=== PATIENT | male | born 1945 | race Caucasian/White ===

== ENCOUNTER 2017-02-25 10:53 | Observation (INO) ==
[2017-02-25] MEDS ORDERED: 0.9 % Sodium Chloride 500 ML IVC ONE (11:28)
--- NOTE | 2017-02-25 11:40 | Emergency Department Note ---
Disposition Clinical Impression: Pre-syncope Disposition: Admitted As Inpatient Condition: Good Time of Disposition: 12:48 General Adult HPI - General Chief complaint: ED Dizziness Stated complaint: dizzy, feel like gonna pass out Time Seen by Provider: 02/25/17 11:09 Source: patient, family Limitations: no limitations Nursing Notes Reviewed: Yes Vital Signs Reviewed: Yes - History of Present Illness HPI Narrative: 71-year-old male presenting to the emergency department with chief complaint of increased shortness of breath and presyncope for the past 2 weeks. Patient has a significant past medical history of an aortic valve replacement approximately 10 years ago. Patient denies any any history of open heart surgeries. Patient denies any loss of consciousness or hitting his head. He states he is concerned that his valve is going bad because he was told that only lasts a maximum of 15 years. Patient denies chest pain at this time. He states his symptoms have been increasing over the past 2 days. Patient had a cardiac catheterization completed in 2008 which was within normal limits. He does not follow up with cardiology at this time. Pain Scale: 0 - Related Data Home Medications Medication Instructions Recorded Confirmed Allopurinol [Zyloprim 100 MG] 100 mg PO DAILY 02/25/17 02/25/17 Aspirin [Lo-Dose Aspirin EC] 81 mg PO DAILY 02/25/17 02/25/17 Lisinopril [Zestril] 20 mg PO DAILY 02/25/17 02/25/17 Metoprolol [Lopressor] 50 mg PO BID 02/25/17 02/25/17 Simvastatin [Zocor] 40 mg PO QPM 02/25/17 02/25/17 Allergies Allergy/AdvReac Type Severity Reaction Status Date / Time Penicillins AdvReac Nausea Verified 02/25/17 11:00 All systems ED: reviewed and negative except as stated. Constitutional: Reports: weakness. Denies: fever, chills Eyes: Reports: as per HPI ENT ED: Reports: as per HPI Cardiovascular: Reports: dyspnea on exertion. Denies: chest pain, palpitations Respiratory: Reports: dyspnea. Denies: cough, wheezes, hemoptysis Gastrointestinal: Reports: nausea. Denies: abdominal pain, vomiting, diarrhea Genitourinary: Reports: as per HPI Musculoskeletal: Reports: as per HPI Integumentary: Denies: rash, abrasion, lesions Neurological: Reports: weakness. Denies: headache, numbness, paresthesias Psychiatric: Reports: as per HPI Endocrine: Reports: as per HPI Hematological/Lymphatic: Reports: as per HPI Allergic/Immunologic: Reports: as per HPI Past Medical History - Past Medical History Attestation: Yes The following information was validated with the patient. Medical history: Reports: cirrhosis, hyperlipidemia, hypertension, myocardial infarction Psychiatric history: Reports: no psych history - Social History Smoking Status: Former smoker Smokeless Tobacco Status: No Alcohol use: Reports: none Drug use: Reports: none Physical Exam - General Limitations: no limitations General appearance: alert, in no apparent distress - Head Head exam: atraumatic, normocephalic, normal inspection - Eye Eye exam: Present: normal appearance - Chest Chest inspection: Present: normal inspection, symmetric chest wall rise. Absent : tenderness, rash - Respiratory Respiratory exam: Present: normal lung sounds bilaterally. Absent: respiratory distress, wheezes - Cardiovascular Cardiovascular exam: Present: bradycardia, systolic murmur - Abdominal Exam Abdominal exam: Present: soft, Non-Tender. Absent: distention, guarding, rebound - Extremities Exam Extremities exam: Present: normal inspection, full ROM - Neurological Exam Neurological exam: Present: alert, oriented X3 - Psychiatric Psychiatric exam: Present: normal affect, normal mood - Skin Skin exam: Present: warm, intact Course Course Narrative: 71-year-old male presented to the emergency department with chief complaint of feeling faint while standing up. Patient has not followed up with cardiology since 2019. He has concerns for his aortic valve replacement. We will perform a chest pain workup including orthostatic vital sign. Will provide 500 mL of fluid. Patient does have congestion noted on x-ray and therefore no additional fluid can be given. Disposition most likely admission for echo - Reevaluation(s) Reevaluation #1: All lab work has come back within normal limits. Chest x-ray shows minimal congestion. We will plan to admit the patient at this time due to her strong cardiac history. Called the hospitalist returned and Ruslan Win accepts the patient. Time: 12:48 Vital Signs Temperature 97.4 F L 02/25/17 11:04 Pulse Rate 50 02/25/17 11:04 Respiratory Rate 18 02/25/17 11:04 Blood Pressure 189/74 02/25/17 11:04 O2 Sat by Pulse Oximetry 100 02/25/17 11:04 Temperature 97.4 F L 02/25/17 11:04 Pulse Rate 49 02/25/17 12:36 Respiratory Rate 18 02/25/17 12:36 Blood Pressure 177/72 02/25/17 12:36 O2 Sat by Pulse Oximetry 99 02/25/17 12:36 Oxygen Delivery Oxygen Delivery Room Air Medical Decision Making - Lab Data Result diagrams: 02/25/17 11:48 02/25/17 11:48 Lab Results 02/25/17 02/25/17 02/25/17 Range/Units 11:48 11:48 11:48 WBC 9.9 (4.3-11.1) K/mcL RBC 5.80 H (4.19-5.50) M/mcL Hgb 17.4 H (12.9-16.9) g/dL Hct 52.1 H (37.5-50.1) % MCV 89.8 (83.0-100.0) fL MCH 30.0 (28.0-33.3) pg MCHC 33.4 (31.6-35.5) g/dL RDW 13.4 (11.5-14.5) % Plt Count 146 (140-400) K/mcL MPV 11.4 (9.4-12.4) fL Immature Gran % 0.4 (0-4) % Seg Neutrophils % 58.6 % Lymphocytes % 27.5 % Monocytes % 8.0 % Eosinophils % 4.8 % Basophils % 0.7 % Neutrophils # 5.8 (1.6-8.9) K/mcL Lymphocytes # 2.7 (0.6-4.6) K/mcL Monocytes # 0.8 (0.0-1.3) K/mcL Eosinophils # 0.5 (0.0-0.6) K/mcL Basophils # 0.1 (0.0-0.2) K/mcL Sodium 140 (136-145) mEq/L Potassium 4.1 (3.5-4.5) mEq/L Chloride 104 (98-109) mEq/L Carbon Dioxide 27 (19-29) mEq/L BUN 11 (8-26) mg/dL Creatinine 1.24 (0.72-1.25) mg/dL Est GFR ( Amer) > 60 (> 60) Est GFR (Non-Af Amer) 57 L (> 60) BUN/Creatinine Ratio 9 (6-26) Glucose 84 (70-99) mg/dL Calculated Osmolality 289 (280-300) Calcium 9.7 (8.6-10.8) mg/dL Troponin I 0.01 (0-0.03) ng/mL Attestation Statement - Attestation Attestation: I examined this patient and my medical decision-making was reviewed with the Resident Physician. I agree with the documented findings, disposition and treatment plan as described except to the extent set forth below. Patient emergency department complaining of near syncope. Patient states when he stands up he felt lightheaded like he is going to pass out. Onset 2 days ago. Denies any vomiting. Has not been doing any extra work around the house. Nothing to account for being dehydrated. Exam shows some in no acute distress. He does have murmur. Lungs clear. Plan. Patient's cardiac workup is unremarkable. He does have a valve replacement that he states was told would eventually need replaced. He has not seen a torch brazer in years. Will be admitted for further cardiac evaluation.
[2017-02-25 12:02] LABS: Basophils # 0.1 K/mcL (0.0-0.2); Basophils % 0.7 %; Eosinophils # 0.5 K/mcL (0.0-0.6); Eosinophils % 4.8 %; Hematocrit 52.1 % (37.5-50.1); Hemoglobin 17.4 g/dL (12.9-16.9); Immature Granulocytes % 0.4 % (0-4); Lymphocytes # 2.7 K/mcL (0.6-4.6); Lymphocytes % 27.5 %; Mean Corpuscular HGB Conc 33.4 g/dL (31.6-35.5); Mean Corpuscular Volume 89.8 fL (83.0-100.0); Mean Platelet Volume 11.4 fL (9.4-12.4); Monocytes # 0.8 K/mcL (0.0-1.3); Neutrophils # 5.8 K/mcL (1.6-8.9); Platelet Count 146 K/mcL (140-400); Red Cell Distribution Width 13.4 % (11.5-14.5); Segmented Neutrophils % 58.6 %
[2017-02-25 12:12] LABS: BUN/Creatinine Ratio 9 (6-26); Blood Urea Nitrogen 11 mg/dL (8-26); Calcium 9.7 mg/dL (8.6-10.8); Carbon Dioxide 27 mEq/L (19-29); Chloride 104 mEq/L (98-109); Glucose 84 mg/dL (70-99); Osmolality,Calculated 289 (280-300); Potassium 4.1 mEq/L (3.5-4.5); Sodium 140 mEq/L (136-145); eGFR For African Americans > 60 (> 60); eGFR For Non-African Americans 57 (> 60)
[2017-02-25] MEDS ORDERED: Ondansetron 4 MG/2 ML VIAL IVP PRN (14:30)
[2017-02-25] MEDS ORDERED: Acetaminophen 325 MG TABLET PO PRN (14:30)
[2017-02-25] MEDS ORDERED: Naloxone 0.4 MG/ML INJ IVP PRN (14:30)
--- NOTE | 2017-02-25 14:57 | Internal Med History&Physical ---
<Manisha Mitchell - Last Filed: 02/25/17 17:40> Date of Encounter: 02/25/17 Time of Encounter: 14:45 Assessment and Plan (1) Pre-syncope Current visit: Yes Status: Acute 1 patient has been experiencing for the past days nausea and lightheadedness to the point he feels that he is going to pass out while standing and walking. Symptoms are relieved with rest. Patient concerned symptoms similar to his previous MT. First troponin is 0.01. We will continue to trend troponins 2 continuous cardiac monitoring 3 we will check cardiac echo-history of aortic valve replacement 10 years ago- he did have some vascular congestion on his chest x-ray 4 fall precautions 6 in view after midnight cardiac stress in a.m.-nausea and lightheadedness anginal equivalent-patient states he experienced these symptoms on his last MT. He never experienced chest pain 7 patient is on a beta you which could be contributing to symptoms-is presently bradycardic with rate 49-54. METOPROLOL for now if bradycardia continues we will consult cardiology 8 orthostatic vitals were positive in the ER.-We will give some gentle IV hydration and recheck orthostatics (2) History of aortic valve replacement Current visit: Yes Status: Acute 1. Replacement approximately 10 years ago. We will check cardiac echo (3) Hypertension Current visit: No Status: Chronic 1 we will continue with lisinopril 2 hold metoprolol for now due to bradycardia Qualifiers: Hypertension type: essential hypertension Qualified Code(s): I10 - Essential (primary) hypertension (4) CAD (coronary artery disease) Current visit: No Status: Chronic We will continue with aspirin and statin lisinopril hold metoprolol for now 2 nitroglycerin as needed for chest pain 3 cardiac monitoring Qualifiers: Coronary Disease-Associated Artery/Lesion type: [place] artery [place] vs. transplanted heart: [place] heart Associated angina: without angina Qualified Code(s): I25.10 - Atherosclerotic heart disease of [place] coronary artery without angina pectoris (5) DVT prophylaxis Current visit: Yes Status: Acute Lovenox subcutaneous Internal Medicine - H&P: HPI Chief complaint: near syncope Admitted From: Emergency Dept Plans for Post Hospital Care: Home History of present illness: Mr. Alexis is a 71 year old male Past medical history of hypertension hyperlipidemia psoriasis MT and aortic valve replacement in 2006. According to the patient was in his usual state of health up until 2 days ago and began to experience nausea/feel lightheaded to the point that he felt as if he was going to pass out. This occurred while he was standing for a period of time. Symptoms would improve once he would sit down and rest. He denies any fevers chills diarrhea abdominal pain chest pain or palpitations. He does admit to some shortness of breath on exertion. Which again would improve with rest. He denies any unusual weight loss or weight gain wheezing or coughing or swelling to abdomen or lower extremities. He had similar symptoms previously when he had his MT 10 years ago, also concerned that his valve may be failing. His last cardiac catheter was in 2008 which he states was normal. 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 He has been admitted for further workup and evaluation. Past Med Surg Social Fam HX - Past Medical History Medical history: cirrhosis, hyperlipidemia, hypertension, myocardial infarction Psychiatric history: no psych history - Social History Smoking Status: Former smoker Smokeless Tobacco Status: No Alcohol use: none Drug use: none - Family History Mother History Unknown: Yes Internal Medicine - H&P: Meds Allopurinol [Zyloprim 100 MG] 100 mg PO DAILY 02/25/17 [History] Aspirin [Lo-Dose Aspirin EC] 81 mg PO DAILY 02/25/17 [History] Lisinopril [Zestril] 20 mg PO DAILY 02/25/17 [History] Metoprolol [Lopressor] 50 mg PO BID 02/25/17 [History] Simvastatin [Zocor] 40 mg PO QPM 02/25/17 [History] 3 Allergy/AdvReac Type Severity Reaction Status Date / Time Penicillins AdvReac Nausea Verified 02/25/17 11:00 All Systems PM: A 10-system review of systems was performed and is negative for pertinent findings except as documented above in the HPI. - Constitutional Constitutional: fatigue - EENT Eyes: blurry vision Nose, mouth and throat: nasal congestion, post-nasal drip - Cardiovascular Cardiovascular ROS IM: dyspnea on exertion, lightheadedness, no chest pain, no diaphoresis, no dyspnea, no palpitations, no syncope - Respiratory Respiratory: no cough, no dyspnea, no wheezing, no excessive phlegm production - Gastrointestinal Gastrointestinal: nausea - Musculoskeletal Musculoskeletal ROS IM: no numbness, no tingling - Integumentary Integumentary IM: no rash, no unusual bruising - Neurological Neurological ROS: no confusion, no convulsions, no focal weakness, no numbness, no tingling, no tremor(s) - Hematologic/Lymphatic Hematologic/Lymphatic: no easy bruising - Constitutional Vitals: Temp Pulse Resp BP Pulse Ox 97.4 F L 49 16 147/62 97 02/25/17 14:04 02/25/17 14:04 02/25/17 14:04 02/25/17 14:04 02/25/17 14:04 General appearance: Present: A&O X 3, answers questions appropriately - Head Head exam: Present: atraumatic, normocephalic - Eye Eye exam: Present: PERRL, conjuntiva pink, sclera anicteric Pupils: Present: PERRL - Neck Neck exam general surgery: Present: supple, trachea midline. Absent: lymphadenopathy - Respiratory Respiratory exam: Present: CTAB. Absent: accessory muscle use, rales, rhonchi, wheezes - Cardiovascular Cardiovascular exam: Present: RRR, +S1, +S2, systolic murmur. Absent: diastolic murmur, gallop, rubs - GI/Abdominal GI/Abdominal exam: Present: normal bowel sounds, soft, no peritoneal signs. Absent: distended, tenderness - Extremities Exam Extremities exam: Present: warm, radial pulses palpable and symmetrical. Absent : calf tenderness, cyanotic, pedal edema - Neurological Exam Neurological exam: Present: CN II-XII intact, oriented X3, no focal deficits. Absent: pronater drift, facial droop, speech deficit - Skin Skin exam: Present: dry, intact Internal Med - H&P Results - Labs CBC & Chem 7: 02/25/17 11:48 02/25/17 11:48 - EKG Data Rate: bradycardia - EKG Data Prior EKG available for review: yes EKG comments: 02/25/17 15:02 T-wave flattening in lateral leads - Diagnostic Studies Other Images Additional comments: Chest X-Ray 02/25/17 11:27 IMPRESSION: Possible mild congestion D/ / Donald Olivera MD / Donald Olivera MD Interpreting Provider: Donald Olivera MD <Markus Huerta - Last Filed: 02/25/17 20:13> Date of Encounter: 02/25/17 Internal Medicine - H&P: HPI History of present illness: Mr. Alexis is a 71 year old male All Systems PM: A 10-system review of systems was performed and is negative for pertinent findings except as documented above in the HPI. - Constitutional Vitals: Temp Pulse Resp BP Pulse Ox 97.5 F L 59 15 191/74 95 02/25/17 18:47 02/25/17 18:47 02/25/17 18:47 02/25/17 18:47 02/25/17 18:47 Internal Med - H&P Results - Labs CBC & Chem 7: 02/25/17 11:48 02/25/17 11:48 Labs: Cardiac Enzymes 02/25/17 Range/Units 16:58 Troponin I 0.01 (0-0.03) ng/mL - Attending Attestation I independently obtained history and examined this patient and my medical decision-making was reviewed with the nurse practitioner. I agree with the documented findings, disposition and treatment plan as described. My findings are summarized below: Patient presented with dizziness and lightheadedness. He had positive orthostatic vital signs. On exam he has a loud systolic murmur. 1+ lower extremity pitting edema Plan: Monitor on telemetry. Troponin troponin. Gentle IV fluids. Check BNP stent. Obtain echocardiogram and stress test. Markus Huerta MD
[2017-02-25] MEDS ORDERED: 0.9 % Sodium Chloride 1,000 ML IVC SCH (17:30)
[2017-02-25] MEDS ORDERED: Lisinopril 20 MG TABLET PO ONE (19:09)
--- NOTE | 2017-02-25 20:33 | Electrocardiograph Report ---
[address] [place] [address] Test Date: 2017-02-25 Pat Name: Morgan Alexis Department: 104 Room: 3B22 Gender: M Maintenance Team Leader: JALEESA : 1945 Requested By: Evelyn See Order Number: [id number] Reading MD: Fracisco Petit MD Measurements Intervals [place] Rate: 50 P: 28 [place]: 180 QRS: 54 QRSD: 91 T: 115 QT: 427 QTc: 399 Interpretive Statements SINUS BRADYCARDIA SEPTAL MYOCARDIAL INFARCTION, OF INDETERMINATE AGE Electronically Signed On 02-25-2017 20:31:45 EDT by Fracisco Petit MD
[2017-02-26 05:33] LABS: Basophils % 0.4 %; Eosinophils # 0.4 K/mcL (0.0-0.6); Eosinophils % 4.2 %; Hematocrit 45.2 % (37.5-50.1); Immature Granulocytes % 0.1 % (0-4); Lymphocytes # 3.1 K/mcL (0.6-4.6); Lymphocytes % 34.2 %; Mean Corpuscular HGB Conc 33.6 g/dL (31.6-35.5); Mean Corpuscular Hemoglobin 30.8 pg (28.0-33.3); Mean Corpuscular Volume 91.7 fL (83.0-100.0); Mean Platelet Volume 12.3 fL (9.4-12.4); Monocytes # 0.8 K/mcL (0.0-1.3); Monocytes % 8.4 %; Neutrophils # 4.8 K/mcL (1.6-8.9); Platelet Count 130 K/mcL (140-400); Red Blood Count 4.93 M/mcL (4.19-5.50); Red Cell Distribution Width 13.2 % (11.5-14.5); Segmented Neutrophils % 52.7 %
[2017-02-26 05:38] LABS: Hemoglobin 15.2 g/dL (12.9-16.9)
[2017-02-26] MEDS ORDERED: Regadenoson 0.4 MG/5 ML SYRINGE IVP ONE (05:52)
[2017-02-26 05:57] LABS: BUN/Creatinine Ratio 11 (6-26); Blood Urea Nitrogen 12 mg/dL (8-26); Calcium 8.9 mg/dL (8.6-10.8); Carbon Dioxide 26 mEq/L (19-29); Chloride 104 mEq/L (98-109); Chol/HDL Ratio 3.1 (0-4.9); Cholesterol 119 mg/dL (< 200); Glucose 82 mg/dL (70-99); HDL Cholesterol 39 mg/dL (40-59); LDL Cholesterol,Calculated 53 mg/dL (0-99); Magnesium 1.5 mg/dL (1.6-2.6); Osmolality,Calculated 287 (280-300); Sodium 139 mEq/L (136-145); Triglycerides 136 mg/dL (< 150); eGFR For African Americans > 60 (> 60); eGFR For Non-African Americans > 60 (> 60)
[2017-02-26] MEDS: *HR* Enoxaparin 40 MG/0.4 ML SYRINGE SQ SCH (05:59)
[2017-02-26] MEDS: Lisinopril 20 MG TABLET PO SCH (10:49)
[2017-02-26] MEDS: Aspirin Enteric Coated 81 MG Tablet PO SCH (10:49)
--- NOTE | 2017-02-26 15:20 | Cardiology Consult Note ---
<Isael Sanchez - Last Filed: 02/26/17 16:28> Date of Encounter: 02/26/17 Time of Encounter: 14:30 Assessment and Plan (1) CAD (coronary artery disease) Current Visit: No Status: Chronic Patient has PMHx of HTN, hyperlipidemia, previous NE, bioprosthetic aortic valve replacement (2006), history of tobacco use. He reports symptoms that are exactly the same as when he had his previous NE. Troponin is negative x 3. EKG was independently read and ST changes are consistent with LVH. No significant changes in EKG when compared with previous EKG from 2008. Stress test demonstrated reversible perfusion defect at basal apical inferior wall and apex. 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 Due to patient's multiple risk factors and history of NE with presenting symptoms, we recommend LHC today. NPO and cardiac prep for LHC. Qualifiers: Coronary Disease-Associated Artery/Lesion type: [place] artery [place] vs. transplanted heart: [place] heart Associated angina: without angina Qualified Code(s): I25.10 - Atherosclerotic heart disease of [place] coronary artery without angina pectoris (2) History of aortic valve replacement Current Visit: No Status: Acute Patient has bioprosthetic aortic valve replacement from 2006. 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 Plan for LHC today and stent if necessary. (3) Pre-syncope Current Visit: Yes Status: Acute The patient expresses that he had symptoms of lightheadedness and nausea, without chest pain, on his previous NE that are exactly like his symptoms today. Pre-syncope symptoms are anginal equivalent in view of abnormal stress test. Left heart catheterization scheduled. (4) Hypertension Current Visit: Yes Status: Chronic Patient has uncontrolled hypertension. Due to his bradycardia, hold home medication metoprolol for HR < 60 or systolic BP less than 100. Continue Lisinopril. Manage per primary team. Qualifiers: Hypertension type: essential hypertension Qualified Code(s): I10 - Essential (primary) hypertension (5) Bradycardia Current Visit: Yes Status: Acute Hold metoprolol for now. Continue to monitor vital signs. (6) DVT prophylaxis Current Visit: Yes Status: Acute Lovenox subcutaneous for DVT prophylaxis. Discussion w patient/family: The assessment and plan as outlined above was discussed with the patient and/or family members who expressed understanding and agreement. All questions were answered. Thank you for involving us in the care of your patient. Please call with any questions. History of Present Illness Consult date: 02/26/17 Consult reason: Abnormal EKG Chief complaint: Nausea and lightheadedness History of present illness: Mr. Alexis is a 71 year old male PMHx of HTN, hyperlipidemia, previous NE, bioprosthetic aortic valve replacement (2006), former smoker, presents with nausea and lightheadedness for 2 days. He states these symptoms were very similar to his symptoms prior to the NE 10 years ago. Symptoms improve at rest and worsen with exertion. He admits to blurry vision with episodes of lightheadedness and has been progressively more fatigued. He has not taken any medication for symptoms. He denies fever, chills, chest pain, diaphoresis, shortness of breath, cough, diarrhea, constipation. Denies any swelling. Per , his blood pressure was elevated to systolic 190s before they came into emergency room. At ED, CXR demonstrates vascular congestion. EKG demonstrated abnormal ST changes. No other acute overnight events. Past Med Surg Social Fam HX - Past Medical History Medical history: cirrhosis, hyperlipidemia, hypertension, myocardial infarction Psychiatric history: no psych history - Social History Smoking Status: Former smoker Smokeless Tobacco Status: No Alcohol use: none Drug use: none - Family History Mother History Unknown: Yes Medications and Allergies Allopurinol [Zyloprim 100 MG] 100 mg PO DAILY 02/25/17 [History] Aspirin [Lo-Dose Aspirin EC] 81 mg PO DAILY 02/25/17 [History] Lisinopril [Zestril] 20 mg PO DAILY 02/25/17 [History] Metoprolol [Lopressor] 50 mg PO BID 02/25/17 [History] Simvastatin [Zocor] 40 mg PO QPM 02/25/17 [History] 3 Allergy/AdvReac Type Severity Reaction Status Date / Time Penicillins AdvReac Nausea Verified 02/25/17 11:00 All Systems Review: A 10-system review of systems was performed and is negative for pertinent findings except as documented above in the HPI. - Constitutional Constitutional: fatigue, no chills, no fever(s), no night sweats - EENT Eyes: blurred vision Nose, mouth and throat: no sore throat - Cardiovascular Cardiovascular: lightheadedness, no chest pain at rest, no chest pain with exertion, no diaphoresis, no dyspnea at rest, no dyspnea on exertion, no irregular heart rhythm, no radiating jaw, neck or arm pain, no leg edema, no palpitations, no rapid heart rate, no syncope - Respiratory Respiratory: no cough, no dyspnea - Gastrointestinal Gastrointestinal: nausea, no abdominal pain, no constipation, no diarrhea - Genitourinary Genitourinary: no dysuria - Integumentary Integumentary: no rash - Neurological Neurological: no abnormal speech, no syncope - Hematological/Lymphatic Hematologic/Lymphatic: no easy bleeding Physical Examination Vital Signs, Last 4 Hours Temp Pulse Resp BP Pulse Ox 02/26/17 15:00 98.7 F 63 16 159/77 99 General: Conversant, No Apparent Distress HEENT: Atraumatic, Normocephaly, Mucus Membranes Moist Neck: No JVD, Normal carotid pulses Cardiac: Reg Rate and Rhythm, Normal S1 and S2, Other (Grade III systolic murmur ) Lungs: Normal Breath Sounds, No Wheeze, Rales, Rhonchi Neuro: Alert and responsive, No focal deficits noted Abdomen: Non-Tender Skin: No rashes noted on visualized skin Musculoskeletal: No Chest Wall Tenderness Extremities: No Clubbing, No Cyanosis, No Edema, Normal Pulses Results 02/26/17 04:11 02/26/17 04:11 Lab Results 02/25/17 02/25/17 02/25/17 16:58 18:00 23:43 WBC Hgb Hct Plt Count Sodium Potassium Chloride Carbon Dioxide BUN Creatinine Glucose Calcium Magnesium Troponin I 0.01 0.01 B-Natriuretic Peptide 202 H 02/26/17 02/26/17 04:11 04:11 WBC 9.1 Hgb 15.2 D Hct 45.2 Plt Count 130 L Sodium 139 Potassium 4.0 Chloride 104 Carbon Dioxide 26 BUN 12 Creatinine 1.09 Glucose 82 Calcium 8.9 Magnesium 1.5 L Troponin I B-Natriuretic Peptide Consult Discharge Plan - Plan Referrals: Christine Rabago CNP [Primary Care Provider] - <Kanu Powers - Last Filed: 02/27/17 10:17> Date of Encounter: 02/27/17 - Attending Attestation I examined this patient and my medical decision-making was reviewed with the Resident Physician. I agree with the documented findings, disposition and treatment plan as described except to the extent set forth below. History of AVR, no history of CAD although states he had an NE in the past. Presents with atypical symptoms but "just like previous heart attack". Stress test shows possible inferior ischemia. Left heart cath discussed and he agrees. Assessment and Plan Discussion w patient/family: The assessment and plan as outlined above was discussed with the patient and/or family members who expressed understanding and agreement. All questions were answered. Thank you for involving us in the care of your patient. Please call with any questions. History of Present Illness History of present illness: Mr. Alexis is a 71 year old male All Systems Review: A 10-system review of systems was performed and is negative for pertinent findings except as documented above in the HPI. Physical Examination Vital Signs, Last 4 Hours Temp Pulse Resp BP Pulse Ox 02/27/17 07:24 98.0 F 63 16 162/74 95 Results 02/26/17 04:11 02/26/17 04:11
[2017-02-26] MEDS ORDERED: *HR* Midazolam HCl 2 MG/2 ML VIAL ONE (15:41)
[2017-02-26] MEDS ORDERED: 0.9 % Sodium Chloride 1,000 ML ONE (15:42)
[2017-02-26] MEDS ORDERED: Nitroglycerin 1,000 MCG/10 ML VIAL IV ONE (15:42)
[2017-02-26] MEDS ORDERED: Heparin 1,000 UNITS/500 mL NS 500 ML ONE (15:42)
[2017-02-26] MEDS ORDERED: *HR* Heparin 10,000 UNIT/10 ML VIAL ONE (15:42)
[2017-02-26] MEDS ORDERED: *HR* FentaNYL (PF) 100 MCG/2 ML VIAL ONE (15:42)
[2017-02-26] MEDS ORDERED: Verapamil 5 MG/2 ML VIAL ONE (15:42)
--- NOTE | 2017-02-26 16:14 | Internal Med Progress Note ---
Date of Encounter: 02/26/17 Time of Encounter: 09:35 - Time Spent With Patient less than 15 minutes - Subjective Interval history: Patient was seen and assessed at bedside at 9:35 AM. Multiple family members in the room, questions answered. Patient has prior history of 2 heart caths without any stents. He reports initially what brought him to the emergency room was blurry vision for the last 2 years. Says he has not seen any primary care provider in the last 8 years. When asked what changed about his vision to bring him now, he says that he felt was about time to have it looked at. Patient also reports increased dizziness for the last 2 weeks, worse over the last 2 days, occurs when he is up and moving. He denies shortness of breath, no chest pressure, no headache, no nausea, vomiting, or diaphoresis. - Constitutional Vitals: Temp Pulse Resp BP Pulse Ox 98.7 F 63 16 159/77 99 02/26/17 15:00 02/26/17 15:00 02/26/17 15:00 02/26/17 15:00 02/26/17 15:00 General appearance: Present: cooperative, A&O X 3, pleasant, no acute distress, answers questions appropriately - Head Head exam: Present: atraumatic, normal inspection, normocephalic - Eye Eye exam: Present: normal appearance, conjuntiva pink, sclera anicteric - Neck Neck exam general surgery: Present: supple, trachea midline. Absent: lymphadenopathy, tenderness - Respiratory Respiratory exam: Present: CTAB. Absent: accessory muscle use, decreased breath sounds, rales, respiratory distress, rhonchi, wheezes - Cardiovascular Cardiovascular exam: Present: RRR, +S1, +S2. Absent: diastolic murmur, gallop, rubs, systolic murmur - GI/Abdominal GI/Abdominal exam: Present: normal bowel sounds, soft. Absent: distended, hepatomegaly, tenderness - Extremities Exam Extremities exam: Present: normal capillary refill, warm, radial pulses palpable and symmetrical. Absent: calf tenderness, cyanotic, pedal edema - Neurological Exam Neurological exam: Present: alert, oriented X3, no focal deficits. Absent: facial droop, speech deficit - Skin Skin exam: Present: dry, intact, normal color, warm. Absent: rash Internal Medicine: Result - Labs CBC & Chem 7: 02/26/17 04:11 10/12/17 04:11 Labs: Short CBC 02/26/17 Range/Units 04:11 WBC 9.1 (4.3-11.1) K/mcL Hgb 15.2 D (12.9-16.9) g/dL Hct 45.2 (37.5-50.1) % Plt Count 130 L (140-400) K/mcL Neutrophils # 4.8 (1.6-8.9) K/mcL BMP 02/26/17 04:11 Sodium 139 Potassium 4.0 Chloride 104 Carbon Dioxide 26 BUN 12 Creatinine 1.09 Glucose 82 Calcium 8.9 Cardiac Enzymes 02/25/17 02/25/17 Range/Units 16:58 23:43 Troponin I 0.01 0.01 (0-0.03) ng/mL - Impressions Impressions Echocardiogram 02/25/17 14:38 Impressions: Normal LV systolic function, LVEF 65%. Moderate concentric left ventricular hypertrophy. Moderate left ventricular diastolic dysfunction. Normal right ventricular size and function. Severely dilated left atrium. Bioprosthetic aortic valve. The is evidence of prosthetic aortic valve stenosis (peak gradient 53 mmHg, mean gradient 27 mmHg, valve area 1.00 cm2). Mild aortic regurgitation, which appears paravalvular. No evidence of pulmonary hypertension. Left Ventricular Wall Motion: Rest Echo Findings All wall segments showed normal motion. Findings: Study Quality * Technically adequate exam. ECG Findings * Sinus rhythm and sinus bradycardia. Left Ventricle * Normal LV systolic function, LVEF 65%. * Normal LV chamber size. * Moderate concentric left ventricular hypertrophy. * Moderate left ventricular diastolic dysfunction. Right Ventricle * Normal right ventricular size and function. Left Atrium * Severely dilated left atrium. Right Atrium * Normal right atrial size. Interatrial Septum * Lipomatous interatrial septum. Aorta * Normally sized aortic root. Pericardium * There is no pericardial effusion present. IVC * The IVC is not dilated. Aortic Valve * Bioprosthetic aortic valve. * The is evidence of prosthetic aortic valve stenosis (peak gradient 53 mmHg, mean gradient 27 mmHg, valve area 1.00 cm2). * Mild aortic regurgitation, which appears paravalvular. Mitral Valve * Moderate mitral annular calcification * No mitral stenosis. * Trace mitral regurgitation. Tricuspid Valve * Normal tricuspid valve structure. * No tricuspid stenosis. * Trace tricuspid regurgitation. * No evidence of pulmonary hypertension. Pulmonic Valve * Normal pulmonic valve structure. * No pulmonic stenosis. * Trace pulmonic regurgitation. Consult Discharge Plan - Plan Referrals: Christine Rabago, DURAN [Primary Care Provider] -
--- NOTE | 2017-02-26 16:24 | Pre-Sedation Evaluation ---
Pre-sedation evaluation - Pre-sedation checklist Date of procedure: 02/26/17 Procedure: c Recent Vitals: Last Vital Signs Temp 98.7 F 02/26/17 15:00 Pulse 63 02/26/17 15:00 Resp 16 02/26/17 15:00 BP 159/77 02/26/17 15:00 Pulse Ox 99 02/26/17 15:00 H&P (including ROS) documented in medical record: Yes Previous reaction to sedatives/anesthetics: No Dietary Status: NPO after Midnight ASA Classification *see protocol: CLASS II-Mild systemic disease Plan of Care: Pt appropriate candidate for procedure/moderate/conscious sedation , Risks/benefits of procedure/sedation discussed w/ patient/family
[2017-02-26] MEDS ORDERED: Tirofiban 12.5 MG/250ML 12.5 MG/250 ML BAG ONE (16:43)
--- NOTE | 2017-02-26 17:26 | Internal Med Progress Note ---
Date of Encounter: 02/26/17 Time of Encounter: 09:35 - Assessment and plan (1) Pre-syncope Current Visit: Yes Status: Acute Assessment and plan: These reports nausea and lightheadedness to the point where he feels he is going to pass out with standing or walking, worse for the last 2 weeks, increased over the last 2 days. Patient reports symptoms are relieved with rest. He reports blurry vision for 2 years since he has not been to primary care provider in 8 years. He denies shortness of breath, chest pain or pressure , no headache, no nausea vomiting, or diaphoresis. Patient reports history of 2 heart catheters in the past and has not had a stent placed. Patient's troponins were negative 3. BNP was mildly elevated at 202. EKG showed sinus bradycardia with a septal KS of indeterminate age. Rate was 50, KS interval was 180, QRS is 91, QTC is 399. Echo showed normal systolic function with an LVEF of 65%, mild LV DT, severely dilated left atrium, bioprosthetic aortic valve, mild AR. Stress test showed a gated EF of greater than 70% with a medium sized, mild intensity reversible perfusion defect involving the nasal apical inferior wall and apex. He was evaluated by cardiology, they agreed upon and LHC today. Patient has not returned to floor from the procedure. Continue telemetry Continue to hold beta you due to bradycardia Appreciate cardiology's recommendations and consultation. Monitor labs and patient condition. (2) History of aortic valve replacement Current Visit: Yes Status: Acute Assessment and plan: Per patient history. Continue aspirin and Plavix. (3) Hypertension Current Visit: Yes Status: Chronic Assessment and plan: Blood pressures been well controlled in the inpatient setting. Beta you was held due to bradycardia. His blood pressure was still well controlled. Continue other home medications. Qualifiers: Hypertension type: essential hypertension Qualified Code(s): I10 - Essential (primary) hypertension (4) CAD (coronary artery disease) Current Visit: Yes Status: Chronic Assessment and plan: Patient had LHC done today. He did have 1 stent placed. Report is not available at this time. Continue aspirin, statin, lisinopril and Zocor. Qualifiers: Coronary Disease-Associated Artery/Lesion type: [place] artery [place] vs. transplanted heart: [place] heart Associated angina: without angina Qualified Code(s): I25.10 - Atherosclerotic heart disease of [place] coronary artery without angina pectoris (5) DVT prophylaxis Current Visit: Yes Status: Acute Assessment and plan: Lovenox subcutaneous. Patient has been ambulatory in his room. (6) Bradycardia Current Visit: Yes Status: Acute Assessment and plan: The patient has been bradycardic 3 visit. Most likely the cause of patient's near syncope. Beta you has been held. We will continue to monitor. I appreciate cardiology's recommendations consultation. - Time Spent With Patient less than 15 minutes - Subjective Interval history: Patient was seen and assessed at bedside at 9:35 AM. Multiple family members in the room, questions answered. Patient has prior history of 2 heart caths without any stents. He reports initially what brought him to the emergency room was blurry vision for the last 2 years. Says he has not seen any primary care provider in the last 8 years. When asked what changed about his vision to bring him now, he says that he felt was about time to have it looked at. Patient also reports increased dizziness for the last 2 weeks, worse over the last 2 days, occurs when he is up and moving. He denies shortness of breath, no chest pressure, no headache, no nausea, vomiting, or diaphoresis. - Constitutional Vitals: Temp Pulse Resp BP Pulse Ox 98.7 F 63 16 159/77 99 02/26/17 15:00 02/26/17 15:00 02/26/17 15:00 02/26/17 15:00 02/26/17 15:00 General appearance: Present: cooperative, A&O X 3, pleasant, no acute distress, answers questions appropriately Internal Medicine: Result - Labs CBC & Chem 7: 02/26/17 04:11 02/26/17 04:11 Labs: Short CBC 02/26/17 Range/Units 04:11 WBC 9.1 (4.3-11.1) K/mcL Hgb 15.2 D (12.9-16.9) g/dL Hct 45.2 (37.5-50.1) % Plt Count 130 L (140-400) K/mcL Neutrophils # 4.8 (1.6-8.9) K/mcL BMP 02/26/17 04:11 Sodium 139 Potassium 4.0 Chloride 104 Carbon Dioxide 26 BUN 12 Creatinine 1.09 Glucose 82 Calcium 8.9 Cardiac Enzymes 02/25/17 02/25/17 Range/Units 16:58 23:43 Troponin I 0.01 0.01 (0-0.03) ng/mL - Impressions Impressions Echocardiogram 02/25/17 14:38 Impressions: Normal LV systolic function, LVEF 65%. Moderate concentric left ventricular hypertrophy. Moderate left ventricular diastolic dysfunction. Normal right ventricular size and function. Severely dilated left atrium. Bioprosthetic aortic valve. The is evidence of prosthetic aortic valve stenosis (peak gradient 53 mmHg, mean gradient 27 mmHg, valve area 1.00 cm2). Mild aortic regurgitation, which appears paravalvular. No evidence of pulmonary hypertension. Left Ventricular Wall Motion: Rest Echo Findings All wall segments showed normal motion. Findings: Study Quality * Technically adequate exam. ECG Findings * Sinus rhythm and sinus bradycardia. Left Ventricle * Normal LV systolic function, LVEF 65%. * Normal LV chamber size. * Moderate concentric left ventricular hypertrophy. * Moderate left ventricular diastolic dysfunction. Right Ventricle * Normal right ventricular size and function. Left Atrium * Severely dilated left atrium. Right Atrium * Normal right atrial size. Interatrial Septum * Lipomatous interatrial septum. Aorta * Normally sized aortic root. Pericardium * There is no pericardial effusion present. IVC * The IVC is not dilated. Aortic Valve * Bioprosthetic aortic valve. * The is evidence of prosthetic aortic valve stenosis (peak gradient 53 mmHg, mean gradient 27 mmHg, valve area 1.00 cm2). * Mild aortic regurgitation, which appears paravalvular. Mitral Valve * Moderate mitral annular calcification * No mitral stenosis. * Trace mitral regurgitation. Tricuspid Valve * Normal tricuspid valve structure. * No tricuspid stenosis. * Trace tricuspid regurgitation. * No evidence of pulmonary hypertension. Pulmonic Valve * Normal pulmonic valve structure. * No pulmonic stenosis. * Trace pulmonic regurgitation. Consult Discharge Plan - Plan Referrals: Christine Rabago CNP [Primary Care Provider] -
--- NOTE | 2017-02-26 17:28 | Invasive Diagnostic Lab Proc ---
Name: Morgan Alexis Date of Study: 02/26/2017 Date: 1945 Ht: 72.0in Medical Record#: [id number] Age: 71 Wt: 202.38lb Gender: Male BSA: 2.14 Order #: [id number] BMI: 27.44 Physicians Procedure Physician: Fracisco Petit MD, [facility] Referring MD: Referring MD: Staff Name Position Time In Rocael Ana Paula RN Actuarial Assistant 04:00 PM Vidhi Gore RN Actuarial Assistant 04:00 PM Majo Harris RN Monitor 04:00 PM Susan Ryder RT (R) Scrub 04:00 PM Indications Indication Abnormal Test - Stress Procedures Performed Procedure CORONARY ARTERY ANGIO S&I Pre-Procedure Checklist Pt not NPO for procedure and MD aware. Blood Pressure: 202/83 Rhythm: NSR Plan of Care Patient will tolerate the procedure without complications. Adequate level of comfort will be maintained. Hemodynamics will remain stable Patient will recover from procedure without complications. Respiratory function will be maintained. Cardiac rhythm will remain stable. Patient temperature will be maintained. Patient and/or family have verbalized understanding of the procedure. Patient Education Chief Complaint/Reason for Test: Cardiac Cath Developmental Category: Geriatric (65+ years) Developmentally Appropriate for Age: Yes Learning Barriers: None Education Needs: Procedure Education Method: Verbal Information Taught: Cardiac Cath Educational Evaluation: Able to repeat information Intravenous Access Time IV Size Location DC'd Fluid/Drip Rate Units RN 18g 1 1/" Patent On Arrival Lt Antecubital 0.9NaCl 50 ml/hr Vidhi Gore RN Allergies PENICILLIN G POTASSIUM Penicillins Vital Signs Time BP (mmHg) HR (bpm) O2 Sat. RR (bpm) LOC 159 / 77 63 99 % 16 5 = Fully awake and oriented or at pre-proc level 04:01 PM / % 5 = Fully awake and oriented or at pre-proc level 04:01 PM / % 4 = Oriented but drowsy 04:16 PM / % 5 = Fully awake and oriented or at pre-proc level 04:31 PM / % 4 = Oriented but drowsy 04:46 PM / % 4 = Oriented but drowsy 04:30 PM 162 / 70 76 98 % 23 04:35 PM 159 / 77 74 93 % 28 04:40 PM 164 / 78 73 96 % 25 04:45 PM 168 / 74 68 96 % 24 04:50 PM 156 / 67 66 97 % 22 04:53 PM 164 / 73 68 98 % 21 04:55 PM 152 / 76 72 97 % 23 05:00 PM 164 / 77 71 97 % 21 05:05 PM 156 / 69 68 98 % 22 05:10 PM 170 / 71 68 99 % 25 04:00 PM 202 / 83 67 100 % 18 04:02 PM 195 / 85 69 100 % 18 04:05 PM 164 / 66 70 98 % 16 04:10 PM 170 / 69 66 94 % 21 04:15 PM 164 / 75 68 92 % 18 04:20 PM 162 / 72 80 93 % 18 04:25 PM 159 / 76 67 93 % 23 Procedural Medications Time Medication Dose Units Method Given By 04:01 PM Oxygen 2 L/min nasal cannula Vidhi Gore RN 04:07 PM Versed 2 mg Intravenous Vidhi Gore RN 04:08 PM Fentanyl 50 mcg Intravenous Vidhi Gore RN 04:27 PM Lidocaine 2% 0.5 ml Subcutaneous Fracisco Petit MD, FACC 04:28 PM Heparin 4000 units Nitroglycerin 200 mcg Verapamil 2.5 mg Intraarterial Fracisco Petit MD, FACC 04:45 PM Aggrastat Bolus: 46 ml Intravenous Vidhi Gore RN 04:45 PM Aggrastat 12.5mg/250ml 16.5 ml Intravenous Vidhi Gore RN 05:13 PM Plavix 600 mg Orally Vidhi Gore RN ASA Classification: CLASS II- Mild systemic disease (i.e. well-controlled diabetes, hypertension, asthma, cigarette smoking) Kay Score Preprocedure Postprocedure Activity 2- Moves 4 extremities sustained head lift Activity 2- Moves 4 extremities sustained head lift Circulation 2- SBP +/= 20 points of pre-anesthetic level Circulation 2- SBP +/= 20 points of pre-anesthetic level Consciousness 2- Awake and alert oriented x 3 Consciousness 2- Awake and alert oriented x 3 O2 Saturation 2- Able to maintain O2 satruation of 92% on room air O2 Saturation 2- Able to maintain O2 satruation of 92% on room air Respiratory 2- Able to deep breathe and cough well Respiratory 2- Able to deep breathe and cough well Total Score 10 Total Score 10 Contrast Agent: Isovue Diagnostic Contrast: 177 ml Total Contrast: 177 ml Fluoro Dose: 1183 mGy Activated Clotting Time Time Seconds to Clot 04:44 PM 286 Procedure Log Time Note Enter By 03:59 PM CathStat 03:59 PM Case Start 03:59 PM Vitals capture started with the following parameters, Patient=Adult, Interval=5 min, Initial Hlqjhbfv=439 mmHg, Deflation Rate=5 mmHg, Cuff placed on Left Arm 03:59 PM Recorded ECG: HR=66 Condition=Condition 1 04:00 PM Pt arrived to slab puller 2 at 16:00 [email or web address] 04:00 PM Ana Paula Cote RN Position: Actuarial Assistant Time in: 16:00 [email or web address] 04:00 PM Vidhi Gore RN Position: Actuarial Assistant Time in: 16:00 [email or web address] 04:00 PM Majo Harris RN Position: Monitor Time in: 16:00 kk 04:00 PM Susan Ryder RT (R) Position: Scrub Time in: 16:00 [email or web address] 04:00 PM Patient charges- Angio tray pack, Navilyst 3mm J, Pulse Oximetry and ACIST tubing and transducer kk 04:00 PM IV Supplies used: J loop Angio Cath. kkner 04:00 PM Case Delayed No [email or web address] 04:00 PM HR=67 bpm, QZXE=074/83 mmhg, DwW4=414 %, Resp=18 B/min 04:00 PM Hair removed from procedure site in procedure lab using clippers. Right wrist prepped with Chloraprep by Ana Paula Cote RN, safety strap applied then patient was draped. Skin intact. 04:00 PM Hair removed from procedure site in procedure lab using clippers. Right wrist prepped with Chloraprep by Ana Paula Cote RN, safety strap applied then patient was draped. Skin intact. kk 04:00 PM Physician arrived 16:00 [email or web address] 04:01 PM ASA Class CLASS II- Mild systemic disease (i.e. well-controlled diabetes, hypertension, asthma, cigarette smoking) [email or web address] 04:01 PM Meet and greet completed kk 04: PM Sign in performed according to hospital policy. [email or web address] 04:01 PM Procedure start 16:01 [email or web address] 04:01 PM Time: 16:01 Oxygen on at 2 L/min per nasal cannula by Vidhi Gore RN ner 04: PM Time: 16:01 Patient comfortable and pain free: Yes : PM Time: 16:LOC: 5 = Fully awake and oriented or at pre-proc level 04: PM NIBP STAT measurement started. 04:01 PM Clinical Presentation: Unstable angina 04:02 PM HR=69 bpm, DCQR=771/85 mmhg, NfJ0=819.0 %, Resp=18 B/min, Comment=SR 04:05 PM HR=70 bpm, CJRZ=728/66 mmhg, SpO2=98.0 %, Resp=16 B/min, Comment=SR 04:08 PM Time: 16:07 Versed 2 mg Intravenous Given by Vidhi Gore RN yvonne 04:08 PM Time: 16:08 Fentanyl 50 mcg Intravenous Given by Vidhi Gore RN toma 04:08 PM Pressure channel 3 zeroed. 04:10 PM HR=66 bpm, AKCL=509/69 mmhg, SpO2=94.0 %, Resp=21 B/min 04:15 PM HR=68 bpm, MUGM=279/75 mmhg, SpO2=92.0 %, Resp=18 B/min, Comment=SR 04:16 PM Time: 16:LOC: 4 = Oriented but drowsy 04:16 PM Time: 16:01 Patient comfortable and pain free: Yes 04:20 PM HR=80 bpm, XZUO=250/72 mmhg, SpO2=93.0 %, Resp=18 B/min, Comment=SR 04:25 PM HR=67 bpm, XPCL=265/76 mmhg, SpO2=93 %, Resp=23 B/min 04:27 PM Time out performed according to hospital policy : PM Time: 16: 0.5 ml Lidocaine 2% to right radial Subcutaneous Given by Fracisco Petit MD, [facility] toma 04:28 PM Time: 16:28 Patient given 4,000 units Heparin, 200 mcg Nitroglycerin, and 2.5 mg Verapamil Intraarterial by Fracisco Petit MD, [facility] ner 04:29 PM 5Fr TIG catheter inserted over the wire [facility] 04:29 PM 0.035 260cm Navilyst 3mmJ wire [id number] ner 04:30 PM Recorded Pressure: Ao, HR=76, Condition=Condition 1 (Aorta) Ao 125/62/87 04:30 PM HR=76 bpm, SCAA=062/70 mmhg, SpO2=98 %, Resp=23 B/min 04:31 PM Time: 16:16 Patient comfortable and pain free: Yes [email or web address] 04:31 PM Time: 16:16LOC: 5 = Fully awake and oriented or at pre-proc level [email or web address] 04:31 PM LCA angiography performed in multiple views. [email or web address] 04:32 PM Coronary Dominance: Left [email or web address] 04:34 PM Lesion found in Mid LAD. Pre Stenosis: 50 Pre SUNNY Flow: [email or web address] 04:34 PM Lesion found in Proximal Circumflex. Pre Stenosis: 50 Pre SUNNY Flow: [email or web address] 04:34 PM Circumflex, Obtuse Marginal, Left Posterior Descending, and Left Posterolateral Coronary Arteries with 50 % stenosis. If graft is supplying this area, 0 % stenosis kkallner 04:34 PM Mid/Distal Left Anterior Descending Coronary Artery and diagonal branches with 50% stenosis. If graft is supplying this area, 0 % stenosis kkallner 04:35 PM HR=74 bpm, ZMDL=928/77 mmhg, SpO2=93.0 %, Resp=28 B/min, Comment=SR 04:35 PM Catheter removed [email or web address] 04:36 PM Lesion found in Mid Circumflex. Pre Stenosis: 70 Pre SUNNY Flow: [email or web address] 04:36 PM Circumflex, Obtuse Marginal, Left Posterior Descending, and Left Posterolateral Coronary Arteries with 70 % stenosis. If graft is supplying this area, 0 % stenosis kkallner 04:36 PM 5Fr 3DRC catheter inserted over the wire [id number] kkallner 04:38 PM wire removed kkallner 04:39 PM Catheter removed kkallner 04:40 PM HR=73 bpm, AZPA=702/78 mmhg, SpO2=96.0 %, Resp=25 B/min 04:41 PM 6Fr CLS 3.0 Runway guide catheter was used to cannulate the PCI vessel successfully. reused? No kkallner 04:41 PM wire removed kkallner 04:42 PM .014 [place] 190cm guide wire across target lesion- successful. reused? No [email or web address] 04:42 PM Recorded Pressure: Ao, HR=69, Condition=Condition 1 (Aorta) Ao 131/61/90 04:44 PM At 16:44 the ACT was 286 seconds. [email or web address] 04:45 PM Time: 16:45 Aggrastat 12.5mg/250ml 16.5 ml Intravenous Given by Vidhi Gore RN Nam pump [email or web address] 04:45 PM HR=68 bpm, VXFY=030/74 mmhg, SpO2=96.0 %, Resp=24 B/min 04:45 PM Time: 16:45 Aggrastat Bolus: 46 ml Intravenous Given by Vidhi Gore RN Nam pump kkner 04:46 PM 3.0 mm x 20 mm Emerge [employer] balloon across target lesion- successful. reused? No kk 04:46 PM Time: 16:31LOC: 4 = Oriented but drowsy 04:46 PM Time: 16:31 Patient comfortable and pain free: Yes kk 04:50 PM HR=66 bpm, BUIM=804/67 mmhg, SpO2=97.0 %, Resp=22 B/min 04:50 PM Recorded Pressure: Ao, HR=69, Condition=Condition 1 (Aorta) Ao 130/62/92 04:51 PM Balloon inflated @ 10 ary for 24 seconds [email or web address] 04:52 PM NIBP STAT measurement started. 04:53 PM HR=68 bpm, UJPZ=520/73 mmhg, SpO2=98.0 %, Resp=21 B/min 04:54 PM Balloon catheter removed intact. kk 04:54 PM 3.5mm x 28mm Synergy drug-eluting stent across target lesion- successful Lot #[id number] kkall 04:55 PM Stent deployed @ 15 ary for 27 seconds [email or web address] 04:55 PM HR=72 bpm, XRLM=753/76 mmhg, SpO2=97.0 %, Resp=23 B/min 04:56 PM Stent delivery system removed intact. [email or web address] 04:57 PM 3.75 mm x 20mm NC Trek Rx balloon across target lesion- successful. reused? No 04:57 PM Recorded Pressure: Ao, HR=67, Condition=Condition 1 (Aorta) Ao 139/57/87 05:00 PM Balloon inflated @ 18 ray for 21 seconds [email or web address] 05:00 PM HR=71 bpm, KYXM=019/77 mmhg, SpO2=97.0 %, Resp=21 B/min 05:01 PM Balloon inflated @ 18 ary for 12 seconds [email or web address] 05:01 PM Time: 16:46 Patient comfortable and pain free: Yes [email or web address] 05:01 PM Time: 16:46LOC: 4 = Oriented but drowsy kkallner 05:02 PM Balloon catheter removed intact. [email or web address] 05:03 PM 4.0 mm x 8mm NC Trek Rx balloon across target lesion- successful. reused? No [email or web address] 05:04 PM Balloon inflated @ 12 ary for 26 seconds kkallner 05:05 PM HR=68 bpm, XETA=405/69 mmhg, SpO2=98.0 %, Resp=22 B/min 05:06 PM Balloon inflated @ 12 ary for 12 seconds kkallner 05:10 PM wire and balloon removed [email or web address] 05:10 PM HR=68 bpm, CALI=026/71 mmhg, SpO2=99.0 %, Resp=25 B/min 05:10 PM Guide catheter removed intact. [email or web address] 05:10 PM Procedure completed at 17:10 [email or web address] 05:11 PM Sign out completed: Radiation Dose 1183.43 mGy Fluoro Time: 14.1 Isovue 370 - 200ml contrast 177 ml given by Fracisco Petit MD, FACC. Complications: NoneCardiac Rehab Consult needed: YesConfirmed administered medications: Yes [email or web address] 05:11 PM Isovue 370 - 200ml,1 Bottle(s) used. [email or web address] 05:11 PM 10 ml air in Vasc Band. [email or web address] 05:12 PM Post ECG NSR kkallner 05:12 PM Post Blood Pressure 170/71 kkallner 05:12 PM 17:12 Post Pulses Rt Radial 2+ [email or web address] 05:12 PM Information taught Cardiac Cath and PCI kkallner 05:12 PM Education needs Procedure, Plan of Care, and Responsibilities of Patient in Care kkallner 05:12 PM Learning barriers :None kkallner 05:12 PM Education Methods Verbal kkallner 05:12 PM Education evaluation Able to repeat information [email or web address] 05:12 PM Site status No bleeding/hematoma - Rt Wrist as reported by Susan Ryder RT (R) at 17:12 [email or web address] 05:13 PM Delay to floor No [email or web address] 05:13 PM Patient out of room: 17:13 [email or web address] 05:13 PM Family placed in consult room. [email or web address] 05:13 PM Complications: None [email or web address] 05:13 PM Fluoro Time: 14.1 all 05:13 PM Isovue 370 - 200ml contrast 177 ml given by Fracisco Petit MD, [facility]. kkall 05:13 PM Radiation Dose 1183.43 mGy kkallner 05:13 PM Plavix, Effient or Brilinta given Yes [email or web address] 05:13 PM Time: 17:13 Plavix 600 mg Orally Given by Vidhi Gore RN kkall 05:15 PM Report given to Liyah RN Pt taken to Room #22. 17:15 [email or web address] 05:20 PM Left Main Coronary Artery with 0% stenosis [email or web address] 05:20 PM Proximal Left Anterior Descending Coronary Artery with 0% stenosis. If graft is supplying this territory, 0 % stenosis. [email or web address] 05:20 PM Mid/Distal Left Anterior Descending Coronary Artery and diagonal branches with 50% stenosis. If graft is supplying this area, 0 % stenosis kkallner 05:20 PM Circumflex, Obtuse Marginal, Left Posterior Descending, and Left Posterolateral Coronary Arteries with 70 % stenosis. If graft is supplying this area, 0 % stenosis kkallner 05:20 PM Right Coronary, Right Posterior Descending Arteries with Right Posterolateral and Acute Marginal branches with 0 % stenosis. If graft is supplying this area, 0 % stenosis kkallner 05:20 PM Ramus with 0% stenosis. If graft is supplying this area, 0 % stenosis kkallner Complications Complication None None Hemodynamics Pressures Site Systolic/A Wave Diastolic/V Wave Mean AO 125 62 87 AO 131 61 90 AO 130 62 92 AO 139 57 87 Post Procedure Information Blood Pressure: 170/71 mmHg Rhythm: NSR Post procedural instructions were given Site Checks Time Location Status Staff Sheath In? Note 05:12 PM Rt Wrist No bleeding/hematoma Susan Ryder RT (R) Pulses Time Site Pre-Procedure Post-Procedure Note Bilateral DP & PT 1+ Bilateral radial 2+ 5:12:00 PM Rt Radial 2+ Updated by Chica Phipps RT (R) on 02/26/2017 5:22:19 PM electronically signed on 02/26/2017 5:23:06 PM with status of Final
[2017-02-26] MEDS ORDERED: Tirofiban 12.5 MG/250ML 12.5 MG/250 ML BAG IVC SCH (17:30)
[2017-02-27] MEDS: *HR* Enoxaparin 40 MG/0.4 ML SYRINGE SQ SCH (06:12)
[2017-02-27] MEDS: Aspirin Enteric Coated 81 MG Tablet PO SCH (08:12)
[2017-02-27] MEDS: Lisinopril 20 MG TABLET PO SCH (08:12)
--- NOTE | 2017-02-27 10:51 | Discharge Summary ---
Date of Encounter: 02/27/17 Time of Encounter: 10:25 - Discharge Diagnosis (1) Pre-syncope Priority: Primary Status: Acute Comments: Pt reports nausea and lightheadedness to the point where he feels he is going to pass out with standing or walking, worse for the last 2 weeks, increased over the last 2 days prior to arrival. Patient reports symptoms are relieved with rest. He reports blurry vision for 2 years since he has not been to primary care provider in 8 years. He denies shortness of breath, chest pain or pressure, no headache, no nausea vomiting, or diaphoresis. Patient reports history of 2 heart catheters in the past and has not had a stent placed. Patient's troponins were negative 3. BNP was mildly elevated at 202. EKG showed sinus bradycardia with a septal MA of indeterminate age. Rate was 50, MO interval was 180, QRS is 91, QTC is 399. Echo showed normal systolic function with an LVEF of 65%, mild LV DT, severely dilated left atrium, bioprosthetic aortic valve, mild AR. Stress test showed a gated EF of greater than 70% with a medium sized, mild intensity reversible perfusion defect involving the nasal apical inferior wall and apex. He was evaluated by cardiology, [facility] yesterday with SADI placement. Pt denies dizziness, chest pressure, SOB ,ALBA, headache, n/v, or diaphoresis. Pt will follow up with cardiology in the office and will have cardiac rehab. Pt will continue ASA, statin, Plavix, and BB after discharge. (2) History of aortic valve replacement Priority: Secondary Status: Chronic Comments: Prior history, 2006. Murmur noted on exam. Continue ASA and Plavix. (3) Hypertension Priority: Secondary Status: Chronic Comments: Vitals, BP, have been well controlled in hospital. Continue medications and continue to monitor blood pressure, PCP for monitoring and any needed medication adjustments. Qualifiers: Hypertension type: essential hypertension Qualified Code(s): I10 - Essential (primary) hypertension (4) CAD (coronary artery disease) Priority: Secondary Status: Chronic Comments: Pt denies chest pain or pressure, SOB, ALBA. Pt had LHC yesterday with SADI placement. Continue ASA, statin, lisinopril, BB, and statin. Qualifiers: Coronary Disease-Associated Artery/Lesion type: [place] artery [place] vs. transplanted heart: [place] heart Associated angina: without angina Qualified Code(s): I25.10 - Atherosclerotic heart disease of [place] coronary artery without angina pectoris (5) Bradycardia Priority: Secondary Status: Acute Comments: Patient was bradycardic initially on arrival,, this is most likely the cause of his near-syncope that brought him in. Beta you was held throughout the visit and he has maintained the 60s and 70s. Discussed need for beta you with cardiology JOURNEY LINEMAN, we will start patient back on a lower dose of metoprolol at discharge and they will monitor for any further adjustments to medication. (6) DVT prophylaxis Priority: Secondary Status: Acute Comments: Lovenox SQ. Pt has been ambulatory in his room. - Discharge Medications Prescriptions: RX: Metoprolol [Lopressor] 25 mg PO BID #60 tablet Home Medications: RX: Allopurinol [Zyloprim 100 MG] 100 mg PO DAILY 02/25/17 [History] RX: Aspirin [Lo-Dose Aspirin EC] 81 mg PO DAILY 02/25/17 [History] RX: Lisinopril [Zestril] 20 mg PO DAILY 02/25/17 [History] RX: Simvastatin [Zocor] 40 mg PO QPM 02/25/17 [History] RX: Clopidogrel [Plavix] 75 mg PO DAILY tablet 02/27/17 [Rx] RX: Metoprolol [Lopressor] 25 mg PO BID #60 tablet 02/27/17 [Rx] Allergies/Adverse Reactions: 3 Allergy/AdvReac Type Severity Reaction Status Date / Time Penicillins AdvReac Nausea Verified 02/25/17 11:00 Procedures/tests Complete & Pending: Procedures Performed prior 72 hours Category Date Time Status CL Cardiac Catheterization [CL] Routine Fermenter Wine 02/26/17 15:39 Ordered NM justino perf SPECT multi [NM] Routine Exams 02/25/17 17:32 Taken EV echocardiogram Routine Y 02/25/17 14:38 Completed SP pharm nuclear stress Routine Y 02/26/17 07:30 Completed Date of admission: 02/25/17 12:55 Primary care physician: Christine Rabago, Consults: 02/26/17 13:04 Consult to Cardiology [CONS] Routine Comment: Consulting Provider: Len Espana Reason for Consult: abnormal stress Call Completed: Yes 02/26/17 17:18 Consult to Cardiac Rehabilitation-Phase1 [CONS] Routine Comment: Reason for Consult: post op cath Call Completed: Yes Discharging clinician: Madina Posey Anticipated date of discharge: 02/27/17 - Patient Status Disposition: Home, Self-Care Condition: Good Functional capacity at discharge: independent ambulation Overall status at discharge: patient is back to baseline - Discharge Instructions Follow Up With: Christine Rabago CNP [Primary Care Provider] - Additional Instructions: Return to the ER as needed for any other problems or concerns, or if your symptoms return or worsen. I have changed the dose of your Metoprolol to 25mg twice a day. Take your blood pressure daily, keep a record, and take it to your doctor when you go. Resume your other medications and activities as tolerated. Follow up with your PCP in the next 7-10 days for a follow up visit Follow up with cardiology as scheduled. - Diet and Activity Activity: increase activity as tolerated, resume usual activities as tolerated Diet: low fat, low cholesterol, low salt diet Hospital course: Mr. Alexis is a 71 year old male with PMH of CAD, multiple LHC without stents , HTN, aortic valve replacement. Pt denies dizziness, chest pain or pressure, headache, abd pain, n/v/d, diaphoresis, SOB, or ALBA. See assessment and plan for hospital course. Labs are stable and WNL, vitals are stable and pt is ready for discharge. - Time Spent with Patient Total time spent providing and/or coordinating discharge services: Less than 30 minutes - Constitutional Vitals: Temp Pulse Resp BP Pulse Ox 98.0 F 63 16 162/74 95 02/27/17 07:24 02/27/17 07:24 02/27/17 07:24 02/27/17 07:24 02/27/17 07:24 General appearance: Present: cooperative, A&O X 3, pleasant, no acute distress, answers questions appropriately - Head Head exam: Present: atraumatic, normal inspection, normocephalic - Eye Eye exam: Present: normal appearance, conjuntiva pink, sclera anicteric - Neck Neck exam general surgery: Present: supple, trachea midline. Absent: lymphadenopathy, tenderness - Respiratory Respiratory exam: Present: CTAB. Absent: accessory muscle use, chest wall tenderness, decreased breath sounds, rales, respiratory distress, rhonchi, wheezes - Cardiovascular Cardiovascular exam: Present: RRR, +S1, +S2. Absent: diastolic murmur, gallop, rubs, systolic murmur - GI/Abdominal GI/Abdominal exam: Present: normal bowel sounds, soft, no peritoneal signs. Absent: distended, hepatomegaly, tenderness - Extremities Exam Extremities exam: Present: normal capillary refill, normal inspection, warm, radial pulses palpable and symmetrical. Absent: calf tenderness, cyanotic, joint swelling, pedal edema, tenderness - Neurological Exam Neurological exam: Present: alert, normal gait, oriented X3, no focal deficits. Absent: facial droop, speech deficit - Skin Skin exam: Present: dry, intact, normal color, warm. Absent: rash
[2017-02-27 11:19] VITALS: BP 166/75
--- NOTE | 2017-02-27 12:28 | Cardiology Progress Note ---
<Isael Sanchez - Last Filed: 02/27/17 15:04> Date of Encounter: 02/27/17 Time of Encounter: 10:30 Assessment and Plan (1) CAD (coronary artery disease) Status: Chronic Patient has PMHx of HTN, hyperlipidemia, previous ME, bioprosthetic aortic valve replacement (2006), history of tobacco use. He reports symptoms that are exactly the same as when he had his previous ME. Troponin is negative x 3. EKG was independently read and ST changes are consistent with LVH. No significant changes in EKG when compared with previous EKG from 2008. Stress test demonstrated reversible perfusion defect at basal apical inferior wall and apex. 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 LHC with circumflex SADI yesterday evening. Patient reports improvement of lightheadedness and nausea. He has no further acute complaints and recovering well from procedure. Patient is ok to be discharge from cardiology's view. He is to follow-up outpatient. Thank you for the consult. Qualifiers: Coronary Disease-Associated Artery/Lesion type: [place] artery [place] vs. transplanted heart: [place] heart Associated angina: without angina Qualified Code(s): I25.10 - Atherosclerotic heart disease of [place] coronary artery without angina pectoris (2) History of aortic valve replacement Status: Chronic Patient has bioprosthetic aortic valve replacement from 2006. 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 LHC with circ SADI performed yesterday. Patient to follow up outpatient. (3) Pre-syncope Status: Acute The patient expresses that he had symptoms of lightheadedness and nausea, without chest pain, on his previous ME that are exactly like his symptoms today. Pre-syncope symptoms are anginal equivalent in view of abnormal stress test. Left heart catheterization performed. Symptoms resolved. (4) Hypertension Status: Chronic Patient has uncontrolled hypertension. Follow-up outpatient for medication management. Qualifiers: Hypertension type: essential hypertension Qualified Code(s): I10 - Essential (primary) hypertension (5) Bradycardia Status: Acute Resolved. HR controlled and in the 60s and asymptomatic. Follow-up with outpatient primary care for medication management. Discussion w patient/family: The assessment and plan as outlined above was discussed with the patient and/or family members who expressed understanding and agreement. All questions were answered. Thank you for involving us in the care of your patient. Please call with any questions. Subjective Principal diagnosis: NSTEMI s/p SADI Interval history: Patient underwent LHC with SADI yesterday evening. He denies fever, chills, lightheadedness, chest pain, shortness of breath, palpitations, diaphoresis, nausea, vomiting, diarrhea, constipation, swelling, new bleeds. He is overall, recovering well from procedure. He reports lightheadedness and nausea have resolved and he has been able to walk without difficulties. No acute overnight events. Objective Vital Signs, Last 4 Hours Temp Pulse Resp BP Pulse Ox 02/27/17 11:18 97.7 F 73 15 166/75 95 General: Conversant, No Apparent Distress HEENT: Atraumatic, Normocephaly, Mucus Membranes Moist Neck: No JVD, Normal carotid pulses Cardiac: Reg Rate and Rhythm, Normal S1 and S2, No Murmur Lungs: Normal Breath Sounds, No Wheeze, Rales, Rhonchi Neuro: Alert and responsive, No focal deficits noted Abdomen: Soft, Non-Tender Skin: No rashes noted on visualized skin Musculoskeletal: No Chest Wall Tenderness Extremities: No Clubbing, No Cyanosis, No Edema, Normal Pulses Results 02/26/17 04:11 02/26/17 04:11 Consult Discharge Plan - Plan Instructions: Metoprolol (By mouth), Influenza Virus Vaccine (Injection), Clopidogrel (By mouth) Additional Instructions: Return to the ER as needed for any other problems or concerns, or if your symptoms return or worsen. I have changed the dose of your Metoprolol to 25mg twice a day. Take your blood pressure daily, keep a record, and take it to your doctor when you go. Resume your other medications and activities as tolerated. Follow up with your PCP in the next 7-10 days for a follow up visit Follow up with cardiology as scheduled. RISK FACTORS: STOP SMOKING: If you smoke, STOP. Smoking or tobacco use significantly increases your risk of heart disease because nicotine causes the arteries to narrow or constrict. It also causes fats to stick to the artery. Your chances of having a heart attack are greatly increased if you continue to smoke. For more information, call the education line for smoking cessation 9-589-PTCVSIX EAT A LOW FAT/CHOLESTEROL/SODIUM DIET: This diet may help reduce your chances of having a heart attack. LIFTING: With affected extremity: Avoid bending, pushing off and lifting more than 2 pounds for 24 hours The following 48 hours, avoid lifting anything more than 5 pounds Avoid strenuous activity or repetitive motions ACTIVITY: You may walk or climb stairs as tolerated You can resume sexual activity as tolerated In general, you are encouraged to engage in a minimum of 30 minutes or more of moderate intensity physical activity, such as brisk walking, daily or at least 3 -4 times weekly BATHING Do not submerge the site into water (bath tub, hot tub, swimming pool, dishes) for 1 week. This can be a source for infection into the blood stream. You may shower after 24 hours SITE CARE: After 24 hours, you may remove the dressing and leave the site open to air. Keep the site clean and dry. Clean gently and pat dry. You can expect bruising and tenderness that gradually resolve within a week or two. Return to work as instructed per your physician Resume driving as instructed per physician Keep all scheduled follow up appointments Resume medications as instructed IMPORTANT: If prescribed a Platelet Aggregation Inhibitor such as, Plavix, Brilinta or Effient: Duration of therapy is minimum one year These medications are often used in combination with Aspirin in prevention of future heart attacks Never discontinue unless consult with your [employer] STROKE (CVA) Risk factors for a stroke are: Age, cigarette smoking, diabetes, excessive alcohol consumption, family history, high blood pressure, overweight, physical inactivity, prior stroke, heart attack, diagnosis of carotid artery stenosis or other artery disease. Warning signs: Sudden numbness or weakness of the face, arm or leg; especially on one side of the body, sudden confusion, trouble speaking or understanding, sudden trouble seeing in one or both eyes, sudden trouble walking, dizziness, loss of balance or coordination, sudden severe headache with no cause. Call 911 or go to the Emergency Room. CONGESTIVE HEART FAILURE: If you have been diagnosed with Congestive Heart Failure (CHF) and your symptoms return, make an appointment with your physician Weigh yourself daily. Notify your physician if you have a weight gain of two or more pounds in one day or five or more pounds in one week. If you experience any difficulty breathing, please call 911 BLEEDING: Although the risk of bleeding is minimal, it can happen. If you have any bleeding from the site, apply firm pressure above the puncture site for 10-15 minutes. If the bleeding does not stop, continue manual pressure and call 911 Contact [facility] ( ) if: You develop a fever greater than 101 degrees Fahrenheit Your site becomes reddened or has any drainage You have an increase in pain or burning at the site or if a large knot forms at the site. If you experience chest pain, shortness of breath, dizziness, or extreme tiredness, stop the activity and rest. Please notify [facility] office if you experience any of these symptoms and they are not relieved by rest please call 911! Referrals: Christine Rabago, HUMAN RESOURCE ASSISTANT [Primary Care Provider] - Prescriptions: Aspirin Enteric Coated [Aspirin EC] 81 mg PO DAILY #30 tablet. Clopidogrel Bisulfate [Plavix] 75 mg PO DAILY #30 tablet Metoprolol [Lopressor] 25 mg PO BID #60 tablet <Kanu Powers - Last Filed: 02/27/17 15:25> Date of Encounter: 02/27/17 Assessment and Plan Discussion w patient/family: The assessment and plan as outlined above was discussed with the patient and/or family members who expressed understanding and agreement. All questions were answered. Thank you for involving us in the care of your patient. Please call with any questions. Results 02/26/17 04:11 02/26/17 04:11
== END 2017-02-27 13:50 | disposition home or self-care (01) ==
LOC: EMEROO 10:53 → 3BNU 10:53
PROVIDERS: ADMIT Nurse Practitioner Family; ATTEND Registered Nurse

== ENCOUNTER 2018-10-01 14:24 | Inpatient (IN) ==
[2018-10-01] MEDS ORDERED: Isovue-370 500 ML BOTTLE IVP ONE (14:38)
[2018-10-01] MEDS ORDERED: 0.9 % Sodium Chloride 1,000 ML IVC ONE ×3 (14:38→15:48)
--- NOTE | 2018-10-01 14:40 | Emergency Department Note ---
Disposition Clinical Impression: Sepsis, Pneumonia, Atrial fibrillation with RVR, NICHOLE (acute kidney injury) Disposition: Admitted As Inpatient Condition: Fair Referrals: Christine Rabago CNP [Primary Care Provider] - Forms: ED Satisfaction Letter General Adult HPI - General Chief complaint: ED Shortness of Breath/Dyspnea Stated complaint: SOB Time Seen by Provider: 10/01/18 14:38 - History of Present Illness Pain Scale: 10 - Related Data Home Medications Medication Instructions Recorded Confirmed Allopurinol [Zyloprim 100 MG] 100 mg PO DAILY 02/25/17 10/01/18 Aspirin [Lo-Dose Aspirin EC] 81 mg PO DAILY 02/25/17 10/01/18 Lisinopril [Zestril] 20 mg PO DAILY 02/25/17 10/01/18 Simvastatin [Zocor] 40 mg PO QPM 02/25/17 10/01/18 Metoprolol Tartrate 50 mg PO BID 10/01/18 10/01/18 Previous Rx's Medication Instructions Recorded Clopidogrel Bisulfate [Plavix] 75 mg PO DAILY #30 tablet 02/27/17 Allergies Allergy/AdvReac Type Severity Reaction Status Date / Time Penicillins AdvReac Nausea Verified 02/25/17 11:00 Past Medical History - Past Medical History Medical history: Reports: cirrhosis, hyperlipidemia, hypertension, myocardial infarction Psychiatric history: Reports: no psych history - Social History Smoking Status: Former smoker Smokeless Tobacco Status: No Alcohol use: Reports: none Drug use: Reports: none Course Vital Signs Temperature 97.3 F L 10/01/18 14:28 Pulse Rate 167 10/01/18 14:28 Respiratory Rate 26 10/01/18 14:28 Blood Pressure 117/64 10/01/18 14:28 O2 Sat by Pulse Oximetry 90 10/01/18 14:28 Temperature 97.3 F L 10/01/18 14:36 Pulse Rate 105 10/01/18 18:39 Respiratory Rate 38 10/01/18 18:39 Blood Pressure 129/108 10/01/18 18:39 O2 Sat by Pulse Oximetry 94 10/01/18 18:39 Oxygen Delivery Oxygen Delivery Nasal Cannula Medical Decision Making - Lab Data Result diagrams: 10/01/18 14:36 10/01/18 14:36 Lab Results 10/01/18 10/01/18 10/01/18 Range/Units 14:36 14:36 14:36 WBC 12.2 H (4.3-11.1) K/mcL RBC 5.63 H (4.19-5.50) M/mcL Hgb 17.5 H (12.9-16.9) g/dL Hct 51.4 H (37.5-50.1) % MCV 91.3 (83.0-100.0) fL MCH 31.1 (28.0-33.3) pg MCHC 34.0 (31.6-35.5) g/dL RDW 13.7 (11.5-14.5) % Plt Count 145 (140-400) K/mcL MPV 12.4 (9.4-12.4) fL Seg Neutrophils % 79.0 % Band Neutrophils % 11.0 H (0-4) % Lymphocytes % 4.0 % Monocytes % 6.0 % Neutrophils # 11.0 H (1.6-8.9) K/mcL Lymphocytes # 0.5 L (0.6-4.6) K/mcL Monocytes # 0.7 (0.0-1.3) K/mcL Platelet Estimate Normal (Normal) PT 15.3 H (9.4-12.1) Seconds INR 1.4 Heparin Anti-Xa, Unfract (0.30-0.70) IU/mL Sodium 134 L (136-145) mEq/L Potassium 4.2 (3.5-5.1) mEq/L Chloride 96 L (98-107) mEq/L Carbon Dioxide 25 (23-29) mEq/L BUN 50 H (8-23) mg/dL Creatinine 1.95 H (0.70-1.30) mg/dL Est GFR ( Amer) 41 L (> 60) Est GFR (Non-Af Amer) 34 L (> 60) BUN/Creatinine Ratio 26 (6-26) Glucose 144 H (70-105) mg/dL Calculated Osmolality 294 (280-300) Lactic Acid (0.5-2.2) mmol/L Calcium 10.1 (8.6-10.3) mg/dL Phosphorus (2.7-4.5) mg/dL Magnesium (1.6-2.6) mg/dL Total Bilirubin 2.7 H (0.3-1.0) mg/dL Direct Bilirubin 0.7 H (0.0-0.2) mg/dL Indirect Bilirubin 2.0 H (0.0-1.2) mg/dL AST 20 (13-39) Units/L ALT 14 (7-52) Units/L Alkaline Phosphatase 49 (34-104) Units/L Troponin I 0.04 H* (< 0.04) ng/mL B-Natriuretic Peptide (Less than 100) pg/mL Serum Total Protein 8.5 (6.4-8.9) g/dL Albumin 3.9 (3.5-5.7) g/dL Globulin 4.6 H (2.4-3.5) g/dL Albumin/Globulin Ratio 0.8 L (1.1-2.2) 10/01/18 10/01/18 10/01/18 Range/Units 14:36 15:21 15:21 WBC (4.3-11.1) K/mcL RBC (4.19-5.50) M/mcL Hgb (12.9-16.9) g/dL Hct (37.5-50.1) % MCV (83.0-100.0) fL MCH (28.0-33.3) pg MCHC (31.6-35.5) g/dL RDW (11.5-14.5) % Plt Count (140-400) K/mcL MPV (9.4-12.4) fL Seg Neutrophils % % Band Neutrophils % (0-4) % Lymphocytes % % Monocytes % % Neutrophils # (1.6-8.9) K/mcL Lymphocytes # (0.6-4.6) K/mcL Monocytes # (0.0-1.3) K/mcL Platelet Estimate (Normal) PT (9.4-12.1) Seconds INR Heparin Anti-Xa, Unfract (0.30-0.70) IU/mL Sodium (136-145) mEq/L Potassium (3.5-5.1) mEq/L Chloride (98-107) mEq/L Carbon Dioxide (23-29) mEq/L BUN (8-23) mg/dL Creatinine (0.70-1.30) mg/dL Est GFR ( Amer) (> 60) Est GFR (Non-Af Amer) (> 60) BUN/Creatinine Ratio (6-26) Glucose (70-105) mg/dL Calculated Osmolality (280-300) Lactic Acid 3.0 H (0.5-2.2) mmol/L Calcium (8.6-10.3) mg/dL Phosphorus 2.6 L (2.7-4.5) mg/dL Magnesium 1.4 L (1.6-2.6) mg/dL Total Bilirubin (0.3-1.0) mg/dL Direct Bilirubin (0.0-0.2) mg/dL Indirect Bilirubin (0.0-1.2) mg/dL AST (13-39) Units/L ALT (7-52) Units/L Alkaline Phosphatase (34-104) Units/L Troponin I (< 0.04) ng/mL B-Natriuretic Peptide 167 H (Less than 100) pg/mL Serum Total Protein (6.4-8.9) g/dL Albumin (3.5-5.7) g/dL Globulin (2.4-3.5) g/dL Albumin/Globulin Ratio (1.1-2.2) 10/01/18 10/01/18 Range/Units 17:39 17:39 WBC (4.3-11.1) K/mcL RBC (4.19-5.50) M/mcL Hgb (12.9-16.9) g/dL Hct (37.5-50.1) % MCV (83.0-100.0) fL MCH (28.0-33.3) pg MCHC (31.6-35.5) g/dL RDW (11.5-14.5) % Plt Count (140-400) K/mcL MPV (9.4-12.4) fL Seg Neutrophils % % Band Neutrophils % (0-4) % Lymphocytes % % Monocytes % % Neutrophils # (1.6-8.9) K/mcL Lymphocytes # (0.6-4.6) K/mcL Monocytes # (0.0-1.3) K/mcL Platelet Estimate (Normal) PT (9.4-12.1) Seconds INR Heparin Anti-Xa, Unfract 0.00 L (0.30-0.70) IU/mL Sodium (136-145) mEq/L Potassium (3.5-5.1) mEq/L Chloride (98-107) mEq/L Carbon Dioxide (23-29) mEq/L BUN (8-23) mg/dL Creatinine (0.70-1.30) mg/dL Est GFR ( Amer) (> 60) Est GFR (Non-Af Amer) (> 60) BUN/Creatinine Ratio (6-26) Glucose (70-105) mg/dL Calculated Osmolality (280-300) Lactic Acid 2.2 (0.5-2.2) mmol/L Calcium (8.6-10.3) mg/dL Phosphorus (2.7-4.5) mg/dL Magnesium (1.6-2.6) mg/dL Total Bilirubin (0.3-1.0) mg/dL Direct Bilirubin (0.0-0.2) mg/dL Indirect Bilirubin (0.0-1.2) mg/dL AST (13-39) Units/L ALT (7-52) Units/L Alkaline Phosphatase (34-104) Units/L Troponin I (< 0.04) ng/mL B-Natriuretic Peptide (Less than 100) pg/mL Serum Total Protein (6.4-8.9) g/dL Albumin (3.5-5.7) g/dL Globulin (2.4-3.5) g/dL Albumin/Globulin Ratio (1.1-2.2) Critical Care Time Critical Care Time: Yes Total Critical Care Time: 30 Attestation: The high probability of a clinically significant, sudden or life threatening deterioration of the [] system(s) required my full and direct attention, intervention and personal management. The aggregate critical care time was [] minutes. This time is in addition to time spent performing reported procedures but includes the following: [] Data Review and interpretation [] Patient assessment and monitoring of vital signs [] Documentation [] Medication orders and management Attestation Statement - Attestation Attestation: I reviewed the residents documentation and agree with the residents assessment and plan of care. I have personally had face to face time with the patient. (Brief History, Brief Exam, and MDM) I personally supervised and was present for the black/critical portions of the following procedures completed by the resident: (add procedures performed here). [id number] time provided I attest to supervising the resident physician's interpretation of ECG. Patient presents with a several day history of generalized malaise as well as nausea and vomiting. He notes diffuse pain. Upon arrival he is tachycardic with an irregularly irregular rhythm. The patient has tachypnea and mild increased work of breathing upon examination.
--- NOTE | 2018-10-01 14:44 | Emergency Department Note ---
Disposition Clinical Impression: Atrial fibrillation with RVR, NICHOLE (acute kidney injury) Sepsis Qualifiers: Sepsis type: sepsis due to unspecified organism Qualified Code(s): A41.9 - Sepsis, unspecified organism Pneumonia Qualifiers: Pneumonia type: due to unspecified organism Laterality: left Lung location: lower lobe of lung Qualified Code(s): J18.1 - Lobar pneumonia, unspecified organism Disposition: Admitted As Inpatient Condition: Fair Referrals: Christine Rabago UX DEVELOPER DESIGNER [Primary Care Provider] - Forms: ED Satisfaction Letter Time of Disposition: 16:12 General Adult HPI - General Chief complaint: ED Shortness of Breath/Dyspnea Stated complaint: SOB Time Seen by Provider: 10/01/18 14:38 Source: patient Mode of arrival: ambulatory Limitations: no limitations Nursing Notes Reviewed: Yes Vital Signs Reviewed: Yes - History of Present Illness HPI Narrative: 72-year-old male penis for evaluation of shortness of breath. Patient presents in the care of family. States that the patient has had general fatigue and illness over the past couple days. Patient states he has having difficulty time breathing. Patient notes that he has pain "everywhere". Patient denies any specific chest pain but does note diffuse myalgias. No fevers. No cough. Patient states that a size PCP was instructed to go to the ER. Patient denies a nausea vomiting. No abdominal pain. Patient denies any history of A. fib in the past but states he is on Plavix for known CAD with stents. Pain Scale: 10 - Related Data Home Medications Medication Instructions Recorded Confirmed Allopurinol [Zyloprim 100 MG] 100 mg PO DAILY 02/25/17 10/01/18 Aspirin [Lo-Dose Aspirin EC] 81 mg PO DAILY 02/25/17 10/01/18 Lisinopril [Zestril] 20 mg PO DAILY 02/25/17 10/01/18 Simvastatin [Zocor] 40 mg PO QPM 02/25/17 10/01/18 Metoprolol Tartrate 50 mg PO BID 10/01/18 10/01/18 Previous Rx's Medication Instructions Recorded Clopidogrel Bisulfate [Plavix] 75 mg PO DAILY #30 tablet 02/27/17 Allergies Allergy/AdvReac Type Severity Reaction Status Date / Time Penicillins AdvReac Nausea Verified 02/25/17 11:00 All systems ED: reviewed and negative except as stated. Constitutional: Denies: fever Cardiovascular: Reports: chest pain Respiratory: Reports: cough, dyspnea Gastrointestinal: Denies: abdominal pain, nausea, vomiting Past Medical History - Past Medical History Source: patient Medical history: Reports: hyperlipidemia, hypertension, myocardial infarction Psychiatric history: Reports: no psych history - Social History Smoking Status: Former smoker Smokeless Tobacco Status: No Alcohol use: Reports: none Drug use: Reports: none Physical Exam - General Limitations: no limitations General appearance: alert, in distress - Head Head exam: atraumatic, normocephalic, normal inspection - Eye Eye exam: Present: normal appearance, PERRL, EOMI - ENT ENT exam: normal exam, normal oropharynx, mucous membranes moist - Neck Neck exam: Present: normal inspection, full ROM, trachea midline - Chest Chest inspection: Present: normal inspection, symmetric chest wall rise - Respiratory Respiratory exam: Present: accessory muscle use, other (Left lower rhonchus). Absent: wheezes - Cardiovascular Cardiovascular exam: Present: regular rate - Abdominal Exam Abdominal exam: Present: soft, Non-Tender - Extremities Exam Extremities exam: Present: normal inspection. Absent: pedal edema - Back Exam Back exam: Present: normal inspection - Neurological Exam Neurological exam: Present: alert - Skin Skin exam: Present: warm, dry, intact, normal color Course Course Narrative: Patient seen and examined. Patient appears in A. fib RVR. Blood pressures preserved. Patient does not have a history of A. fib. Patient is complaining of pain everywhere. Patient will get adequate rate control. Patient also get extensive evaluation. - Reevaluation(s) Reevaluation #1: Patient's heart rate is responding to the interventions. Patient does have evidence of pneumonia on chest x-ray which is likely attributes to a is A. fib RVR. Patient is treated for me acquired pneumonia. Patient does meet sepsis criteria and will obtain a 30 mL/kg. Time: 15:50 Reevaluation #2: Patient seen and examined. Updated on plan of care. Patient's heart rate is improving. Time: 15:54 Vital Signs Temperature 97.3 F L 10/01/18 14:28 Pulse Rate 167 10/01/18 14:28 Respiratory Rate 26 10/01/18 14:28 Blood Pressure 117/64 10/01/18 14:28 O2 Sat by Pulse Oximetry 90 10/01/18 14:28 Temperature 97.3 F L 10/01/18 14:36 Pulse Rate 105 10/01/18 15:10 Respiratory Rate 38 10/01/18 15:10 Blood Pressure 115/52 10/01/18 15:10 O2 Sat by Pulse Oximetry 96 10/01/18 15:10 Oxygen Delivery Oxygen Delivery Room Air Medical Decision Making - MDM Narrative Medical decision making narrative: Patient presented for concerns of A. fib RVR. Describing generalized illness with myalgias. Also complaining of chest pain and some shortness of breath on repeat evaluation. Patient sees had a nonproductive cough. Patient's ED evaluations consistent with new onset A. fib in the setting of new pneumonia. Patient does not appear to be in any respiratory distress. Patient's symptoms are not consistent with a PE. Patient's labs show concerns for sepsis in the setting of GABRIELLE and volume depletion. Patient did receive the 30 mL/kg and did get broad-spectrum coverage with blood cultures. At this point the patient's appropriate for continued evaluation and monitoring. Patient did get some rate control with diltiazem. - Lab Data Lab results reviewed: Yes I reviewed the patient's lab results. Result diagrams: 10/01/18 14:36 10/01/18 14:36 Lab Results 10/01/18 10/01/18 10/01/18 Range/Units 14:36 14:36 14:36 WBC 12.2 H (4.3-11.1) K/mcL RBC 5.63 H (4.19-5.50) M/mcL Hgb 17.5 H (12.9-16.9) g/dL Hct 51.4 H (37.5-50.1) % MCV 91.3 (83.0-100.0) fL MCH 31.1 (28.0-33.3) pg MCHC 34.0 (31.6-35.5) g/dL RDW 13.7 (11.5-14.5) % Plt Count 145 (140-400) K/mcL MPV 12.4 (9.4-12.4) fL Seg Neutrophils % 79.0 % Band Neutrophils % 11.0 H (0-4) % Lymphocytes % 4.0 % Monocytes % 6.0 % Neutrophils # 11.0 H (1.6-8.9) K/mcL Lymphocytes # 0.5 L (0.6-4.6) K/mcL Monocytes # 0.7 (0.0-1.3) K/mcL Platelet Estimate Normal (Normal) PT 15.3 H (9.4-12.1) Seconds INR 1.4 Sodium 134 L (136-145) mEq/L Potassium 4.2 (3.5-5.1) mEq/L Chloride 96 L (98-107) mEq/L Carbon Dioxide 25 (23-29) mEq/L BUN 50 H (8-23) mg/dL Creatinine 1.95 H (0.70-1.30) mg/dL Est GFR ( Amer) 41 L (> 60) Est GFR (Non-Af Amer) 34 L (> 60) BUN/Creatinine Ratio 26 (6-26) Glucose 144 H (70-105) mg/dL Calculated Osmolality 294 (280-300) Lactic Acid (0.5-2.2) mmol/L Calcium 10.1 (8.6-10.3) mg/dL Phosphorus (2.7-4.5) mg/dL Magnesium (1.6-2.6) mg/dL Total Bilirubin 2.7 H (0.3-1.0) mg/dL Direct Bilirubin 0.7 H (0.0-0.2) mg/dL Indirect Bilirubin 2.0 H (0.0-1.2) mg/dL AST 20 (13-39) Units/L ALT 14 (7-52) Units/L Alkaline Phosphatase 49 (34-104) Units/L Serum Total Protein 8.5 (6.4-8.9) g/dL Albumin 3.9 (3.5-5.7) g/dL Globulin 4.6 H (2.4-3.5) g/dL Albumin/Globulin Ratio 0.8 L (1.1-2.2) 10/01/18 10/01/18 Range/Units 15:21 15:21 WBC (4.3-11.1) K/mcL RBC (4.19-5.50) M/mcL Hgb (12.9-16.9) g/dL Hct (37.5-50.1) % MCV (83.0-100.0) fL MCH (28.0-33.3) pg MCHC (31.6-35.5) g/dL RDW (11.5-14.5) % Plt Count (140-400) K/mcL MPV (9.4-12.4) fL Seg Neutrophils % % Band Neutrophils % (0-4) % Lymphocytes % % Monocytes % % Neutrophils # (1.6-8.9) K/mcL Lymphocytes # (0.6-4.6) K/mcL Monocytes # (0.0-1.3) K/mcL Platelet Estimate (Normal) PT (9.4-12.1) Seconds INR Sodium (136-145) mEq/L Potassium (3.5-5.1) mEq/L Chloride (98-107) mEq/L Carbon Dioxide (23-29) mEq/L BUN (8-23) mg/dL Creatinine (0.70-1.30) mg/dL Est GFR ( Amer) (> 60) Est GFR (Non-Af Amer) (> 60) BUN/Creatinine Ratio (6-26) Glucose (70-105) mg/dL Calculated Osmolality (280-300) Lactic Acid 3.0 H (0.5-2.2) mmol/L Calcium (8.6-10.3) mg/dL Phosphorus 2.6 L (2.7-4.5) mg/dL Magnesium 1.4 L (1.6-2.6) mg/dL Total Bilirubin (0.3-1.0) mg/dL Direct Bilirubin (0.0-0.2) mg/dL Indirect Bilirubin (0.0-1.2) mg/dL AST (13-39) Units/L ALT (7-52) Units/L Alkaline Phosphatase (34-104) Units/L Serum Total Protein (6.4-8.9) g/dL Albumin (3.5-5.7) g/dL Globulin (2.4-3.5) g/dL Albumin/Globulin Ratio (1.1-2.2) - Radiology Data Radiology results reviewed: Yes I reviewed the patient's radiology results. Chest X-Ray 10/01/18 14:38 IMPRESSION: Airspace opacity within the mid to lower left lung suspicious for pneumonia. Recommend follow-up to ensure complete resolution. D/ / Sally Cuellar MD / Sally Cuellar MD Interpreting Provider: Sally Cuellar MD - EKG Data EKG #1 EKG attestation: Yes I reviewed and interpreted this EKG. Rate: tachycardia Rhythm: A.Fib [place]/QRS: normal T wave inversions noted in: II, III, aVF When compared to previous EKG there are: changes noted Interpretation: nonspecific ST-T wave changes S.B.ADana - S.Taz.ADana Situation: Demographics Background: Presenting Complaint Assessment: Vital Signs, Course and respsone to treatment Recommendation: Barrier(s) to disposition, Recommendation based on pending studies, treatments, or consults S.B.A.RLevi Report Given to: Hospitalist Tobias Santiago Time: 16:13
[2018-10-01 14:50] LABS: Hematocrit 51.4 % (37.5-50.1); Hemoglobin 17.5 g/dL (12.9-16.9); Mean Corpuscular Hemoglobin 31.1 pg (28.0-33.3); Mean Corpuscular Volume 91.3 fL (83.0-100.0); Mean Platelet Volume 12.4 fL (9.4-12.4); Platelet Count 145 K/mcL (140-400); Red Blood Count 5.63 M/mcL (4.19-5.50); Red Cell Distribution Width 13.7 % (11.5-14.5)
[2018-10-01 15:03] LABS: Albumin 3.9 g/dL (3.5-5.7); Albumin/Globulin Ratio 0.8 (1.1-2.2); Bilirubin,Direct 0.7 mg/dL (0.0-0.2); Bilirubin,Total 2.7 mg/dL (0.3-1.0); Calcium 10.1 mg/dL (8.6-10.3); Globulin 4.6 g/dL (2.4-3.5); Potassium 4.2 mEq/L (3.5-5.1); Total Protein 8.5 g/dL (6.4-8.9)
[2018-10-01 15:08] LABS: INR 1.4; Prothrombin Time 15.3 Seconds (9.4-12.1)
[2018-10-01 15:41] LABS: Lymphocytes # 0.5 K/mcL (0.6-4.6); Monocytes # 0.7 K/mcL (0.0-1.3)
[2018-10-01 15:43] LABS: Platelet Estimate Normal (Normal)
[2018-10-01] MEDS ORDERED: Azithromycin 500 MG in D5% in Water 250 ML IVPB ONE (15:46)
[2018-10-01] MEDS ORDERED: cefTRIAXone 1,000 MG in Water for inj. (sterile) 20 ML 10 ML IVP ONE (15:46)
[2018-10-01 15:57] LABS: Magnesium 1.4 mg/dL (1.6-2.6); Phosphorous 2.6 mg/dL (2.7-4.5)
[2018-10-01 16:41] LABS: Troponin I 0.04 ng/mL (< 0.04)
--- NOTE | 2018-10-01 17:04 | Internal Med History&Physical ---
Date of Encounter: 10/01/18 Time of Encounter: 17:02 Internal Medicine - H&P: HPI Chief complaint: feeling sick Admitted From: Home Plans for Post Hospital Care: Home History of present illness: Mr. Alexis is a 72 year old male past medical history of hypertension, hyperlipidemia, aortic valve replacement in 2006, past smoker, coronary artery disease with stenting 2016, psoriasis, came in with complain of shortness of breath and myalgia and feeling sick. Patient has been feeling sick since Thursday and initially felt he had a flu. He saw his primary care doctor who asked him to come to ER. He has been feeling more short of breath for past 2-3 days. He has associated diffuse pain and myalgia. Denies any nausea and vomiting. Has some diffuse abdominal pain and body aches. Denies any diarrhea or urinary complaints. He said had chills at home but did not measure any fever. Patient was evaluated in ER and was found to have elevated white count, tachycardia or tachypnea and elevated lactic acid. Chest x-ray showed pneumonia. Patient was started on ceftriaxone and azithromycin and IV fluids. Patient was found to have A. fib with RVR and elevated troponin and NICHOLE.. He had diffuse chest pain which was reproducible. Patient was started on antibiotics and IV fluid and admission was requested. Evaluation patient in ER patient appears in mild respiratory distress. Denies any chest pain however has diffuse body ache. Slightly feeling better than he came in. Denies any lightheadedness nausea. Past Med Surg Social Fam HX - Past Medical History Medical history: coronary artery disease, hyperlipidemia, hypertension, myocardi al infarction Additional medical history: Psoriasis, Psychiatric history: no psych history - Past Surgical History Additional surgical history: 2006 Heart valve replaced - Social History Smoking Status: Former smoker Smokeless Tobacco Status: No Alcohol use: none Drug use: none - Additional Family History Additional family history: non contributory Internal Medicine - H&P: Meds Allopurinol [Zyloprim 100 MG] 100 mg PO DAILY 02/25/17 [History] Aspirin [Lo-Dose Aspirin EC] 81 mg PO DAILY 02/25/17 [History] Lisinopril [Zestril] 20 mg PO DAILY 02/25/17 [History] Simvastatin [Zocor] 40 mg PO QPM 02/25/17 [History] Clopidogrel Bisulfate [Plavix] 75 mg PO DAILY #30 tablet 02/27/17 [Rx] Metoprolol Tartrate 50 mg PO BID 10/01/18 [History] Allergy/AdvReac Type Severity Reaction Status Date / Time Penicillins AdvReac Nausea Verified 02/25/17 11:00 All Systems PM: A 10-system review of systems was performed and is negative for pertinent findings except as documented above in the HPI. - Constitutional Vitals: Temp Pulse Resp BP Pulse Ox 97.3 F L 103 40 115/52 93 10/01/18 14:36 10/01/18 16:15 10/01/18 16:15 10/01/18 16:15 10/01/18 16:15 Exam: Constitutional: Vitals as noted. Conversant. mild respiratory distress Eyes : Sclera white, conjunctiva clear, no lid lag, PEARLA. ENT : decreased hearing. Oropharyngeal exam unremarkable. dry mucus membranes. No JVD, no cervical lymphadenopathy. Respiratory : mild accessory muscle use. rales in b/l base Cardiovascular : tachycardic irregular +S1, +S2. systolic murmur. chest wall tenderness diffusely GI/Abdominal : Soft, diffuse gen tender,mild distended, no orgenomegaly or mass appreciated. no hernia. Musculoskeletal: no deformity noted. trace edema or cyanosis. warm extremities, pulses palpable and symmetrical in UE/LE. no calf tenderness. Neurological: AO X3, CN II-XII grossly intact, grossly normal motor and sensory exam. Skin: psoriatic rash Internal Med - H&P Results - Labs CBC & Chem 7: 10/01/18 14:36 10/01/18 14:36 Labs: Short CBC 10/01/18 Range/Units 14:36 WBC 12.2 H (4.3-11.1) K/mcL Hgb 17.5 H (12.9-16.9) g/dL Hct 51.4 H (37.5-50.1) % Plt Count 145 (140-400) K/mcL Neutrophils # 11.0 H (1.6-8.9) K/mcL BMP 10/01/18 14:36 Sodium 134 L Potassium 4.2 Chloride 96 L Carbon Dioxide 25 BUN 50 H Creatinine 1.95 H Glucose 144 H Calcium 10.1 Cardiac Enzymes 10/01/18 Range/Units 14:36 Troponin I 0.04 H* (< 0.04) ng/mL Liver Function 10/01/18 Range/Units 14:36 Total Bilirubin 2.7 H (0.3-1.0) mg/dL Direct Bilirubin 0.7 H (0.0-0.2) mg/dL AST 20 (13-39) Units/L ALT 14 (7-52) Units/L Alkaline Phosphatase 49 (34-104) Units/L Albumin 3.9 (3.5-5.7) g/dL - EKG Data -: EKG Interpreted by Myself - Impressions ITS Impressions Chest X-Ray 10/01/18 14:38 IMPRESSION: Airspace opacity within the mid to lower left lung suspicious for pneumonia. Recommend follow-up to ensure complete resolution. D/ / Sally Cuellar MD / Sally Cuellar MD Interpreting Provider: Sally Cuellar MD - Assessment and Plan (1) Sepsis Current Visit: Yes Status: Acute Assessment and plan: Patient has sepsis likely secondary to pneumonia Follow blood and sputum culture Continue patient on IV fluids. Trend lactic acid levels Obtain respiratory infectious panel, urine Legionella and streptococcal antigen Continue patient on empiric ceftriaxone and azithromycin Qualifiers: Sepsis type: sepsis due to unspecified organism Qualified Code(s): A41.9 - Sepsis, unspecified organism (2) NICHOLE (acute kidney injury) Current Visit: Yes Status: Acute Assessment and plan: Likely prerenal in the setting of sepsis Status post IV fluid resuscitation. Continue maintenance fluids Monitor renal function. (3) Atrial fibrillation with RVR Current Visit: Yes Status: Acute Assessment and plan: New onset Obtain TSH Replete magnesium and phosphate Continue patient on Cardizem drip. Rate better controlled Start patient on heparin drip Obtain echocardiogram Possibly precipitated from acute infection on baseline CAD We will consult cardiology in the morning (4) Pneumonia Current Visit: Yes Status: Acute Assessment and plan: As above Qualifiers: Pneumonia type: due to unspecified organism Laterality: left Lung location: lower lobe of lung Qualified Code(s): J18.1 - Lobar pneumonia, unspecified organism (5) DVT prophylaxis Current Visit: No Status: Acute Assessment and plan: On heparin drip (6) CAD (coronary artery disease) Current Visit: No Status: Chronic Qualifiers: Coronary Disease-Associated Artery/Lesion type: [place] artery [place] vs. transplanted heart: [place] heart Associated angina: without angina Qualified Code(s): I25.10 - Atherosclerotic heart disease of [place] coronary artery without angina pectoris (7) History of aortic valve replacement Current Visit: No Status: Chronic (8) Hypertension Current Visit: No Status: Chronic Assessment and plan: Hold home antihypertensives for now. Qualifiers: Hypertension type: essential hypertension Qualified Code(s): I10 - Essential (primary) hypertension (9) Elevated troponin Current Visit: Yes Status: Acute Assessment and plan: EKG with A. fib with RVR and some ST depression possibly related to LVH We will trend troponin Possibly demand ischemia related to sepsis, A. fib RVR with NICHOLE Patient will be on heparin drip for atrial fibrillation We will consult cardiology in the morning - Time Spent With Patient Total time spent is greater than 50% in coordination of care (as documented) at patient's floor/unit and/or counseling patient:
[2018-10-01] MEDS ORDERED: *HR* Heparin 5,000 UNIT/ML VIAL IVP ONE (17:12)
[2018-10-01] MEDS ORDERED: *HR* Heparin 5,000 UNIT/ML VIAL IVP PRN (17:12)
[2018-10-01] MEDS ORDERED: Levalbuterol Neb 0.63 MG/3 ML IH PRN (17:15)
[2018-10-01] MEDS ORDERED: Aspirin 325 MG TABLET PO ONE (17:30)
[2018-10-01 18:33] LABS: Hepatitis B Surface Antigen Nonreactive (Nonreactive)
[2018-10-01 19:02] LABS: Hepatitis B Core IgM Nonreactive (Nonreactive); Hepatitis C Virus Antibody Nonreactive (Nonreactive)
[2018-10-01] MEDS: Heparin 25,000 UNIT/250 ML D5W 25,000 UNIT/250 ML IV.SOLN IVC SCH (19:41)
[2018-10-01] MEDS: Ipratropium/Albuterol Neb 3 ML IH SCH (22:24)
[2018-10-01] MEDS: 0.9 % Sodium Chloride 1,000 ML IVC SCH (22:24)
[2018-10-01] MEDS ORDERED: Melatonin 3 MG TABLET PO PRN (22:29)
[2018-10-02 00:19] LABS: Bilirubin,Urine Small (Negative); Blood,Urine Negative (Negative); Clarity,Urine Clear (Clear); Color,Urine Dark Yellow (Yellow); Glucose,Urine (UA) Normal (Normal); Ketones,Urine Trace mg/dL (Negative); Leukocyte Esterase,Urine Negative (Negative); Nitrite,Urine Negative (Negative); Protein,Urine 30 mg/dL (Neg-Trace); Specific Gravity,Urine 1.019 (1.010-1.025); Urobilinogen,Urine Normal (Normal)
[2018-10-02 00:21] LABS: Hyaline Casts,Urine None Seen per lpf (None-Few); WBC,Urine 0-3 per hpf (0-3)
[2018-10-02 00:29] LABS: Bacteria,Urine Moderate per hpf (None-Few); RBC,Urine 0-3 per hpf (0-3)
[2018-10-02] MEDS: *HR* Heparin 5,000 UNIT/ML VIAL IVP PRN ×3 (02:17→18:12)
[2018-10-02] MEDS: Ipratropium/Albuterol Neb 3 ML IH SCH ×4 (03:21→22:04)
[2018-10-02 06:22] LABS: Basophils % 0.4 %; Eosinophils # 0.1 K/mcL (0.0-0.6); Eosinophils % 0.7 %; Hematocrit 41.2 % (37.5-50.1); Immature Granulocytes % 0.7 % (0-4); Lymphocytes # 1.1 K/mcL (0.6-4.6); Lymphocytes % 13.2 %; Mean Corpuscular HGB Conc 34.7 g/dL (31.6-35.5); Mean Corpuscular Hemoglobin 31.2 pg (28.0-33.3); Mean Platelet Volume 12.4 fL (9.4-12.4); Monocytes # 0.4 K/mcL (0.0-1.3); Monocytes % 4.5 %; Platelet Count 127 K/mcL (140-400); Red Blood Count 4.58 M/mcL (4.19-5.50); Red Cell Distribution Width 13.6 % (11.5-14.5); Segmented Neutrophils % 80.5 %
[2018-10-02 06:24] LABS: Hemoglobin 14.3 g/dL (12.9-16.9); Neutrophils # 6.8 K/mcL (1.6-8.9)
[2018-10-02 06:41] LABS: Alanine Aminotransferase 11 Units/L (7-52); Albumin 3.1 g/dL (3.5-5.7); Albumin/Globulin Ratio 1.1 (1.1-2.2); Alkaline Phosphatase 45 Units/L (34-104); Aspartate Amino Transferase 19 Units/L (13-39); BUN/Creatinine Ratio 32 (6-26); Bilirubin,Total 1.6 mg/dL (0.3-1.0); Blood Urea Nitrogen 39 mg/dL (8-23); Calcium 8.8 mg/dL (8.6-10.3); Carbon Dioxide 20 mEq/L (23-29); Chloride 104 mEq/L (98-107); Chol/HDL Ratio 8.8 (0-4.9); Cholesterol 79 mg/dL (< 200); Globulin 2.9 g/dL (2.4-3.5); Glucose 111 mg/dL (70-105); HDL Cholesterol 9 mg/dL (40-59); LDL Cholesterol,Calculated 22 mg/dL (0-99); Osmolality,Calculated 292 (280-300); Potassium 3.3 mEq/L (3.5-5.1); Sodium 136 mEq/L (136-145); Triglycerides 239 mg/dL (< 150); eGFR For Non-African Americans 59 (> 60)
[2018-10-02 06:46] LABS: Platelet Estimate Slight Decrease (Normal)
[2018-10-02] MEDS: 0.9 % Sodium Chloride 1,000 ML IVC SCH (08:22)
[2018-10-02] MEDS: Aspirin Enteric Coated 81 MG Tablet PO SCH (08:30)
[2018-10-02] MEDS: cefTRIAXone 1,000 MG in Water for inj. (sterile) 20 ML 10 ML IVP SCH (08:31)
--- NOTE | 2018-10-02 09:34 | Internal Med Progress Note ---
Hospitalist Progress Note - Encounter Date of Encounter: 10/02/18 Time of Encounter: 09:57 - Subjective Interval History: no chets pain n dyspnea overall feeling better abdominal soreness had BM today no fevers or chills - Exam Vitals: Temp Pulse Resp BP Pulse Ox 97.7 F 10 24 128/64 95 10/02/18 07:44 10/02/18 07:44 10/02/18 07:44 10/02/18 07:44 10/02/18 07:44 Exam: Constitutional: Vitals as noted. Conversant. no respiratory distress Eyes : Sclera white, conjunctiva clear, ENT : Oropharyngeal exam unremarkable. dry mucus membranes. No JVD, Respiratory : decreased breath sounds at bases, no rales Cardiovascular : irregular +S1, +S2. 2/6 systolic murmur. GI/Abdominal : Soft, mildly distended, no rebound or tenderness Musculoskeletal: no deformity noted. trace edema warm extremities, radial pulses palpable and symmetrical Neurological: AO X3, CN II-XII grossly intact, grossly normal motor and sensory exam. - Assessment and Plan (1) Sepsis Current Visit: Yes Status: Acute (2) NICHOLE (acute kidney injury) Current Visit: Yes Status: Acute (3) Pneumonia Current Visit: Yes Status: Acute (4) Atrial fibrillation with RVR Current Visit: Yes Status: Acute (5) History of aortic valve replacement Current Visit: No Status: Chronic (6) Hypertension Current Visit: No Status: Chronic (7) CAD (coronary artery disease) Current Visit: No Status: Chronic (8) DVT prophylaxis Current Visit: No Status: Acute - Summary of Assessment and Plan Summary of Assessment and Plan: Per H&P: ""Mr. Alexis is a 72 year old male past medical history of hypertension, hyperlipidemia, aortic valve replacement in 2006, past smoker, coronary artery disease with stenting 2017, psoriasis, came in with complain of shortness of breath and myalgia and feeling sick. Patient has been feeling sick since Thursday and initially felt he had a flu. He saw his primary care doctor who asked him to come to ER. He has been feeling more short of breath for past 2-3 days. He has associated diffuse pain and myalgia. Denies any nausea and vomiting. Has some diffuse abdominal pain and body aches. Denies any diarrhea or urinary complaints. He said had chills at home but did not measure any fever. Patient was evaluated in ER and was found to have elevated white count, tachycardia or tachypnea and elevated lactic acid. Chest x-ray showed pneumonia. Patient was started on ceftriaxone and azithromycin and IV fluids. Patient was found to have A. fib with RVR and elevated troponin and NICHOLE.. He had diffuse chest pain which was reproducible. Patient was started on antibiotics and IV fluid and admission was requested. Evaluation patient in ER patient appears in mild respiratory distress. Denies any chest pain however has diffuse body ache. Slightly feeling better than he came in. Denies any lightheadedness nausea."" # Sepsis, resolving # Pneumonia # Pre-renal NICHOLE, resolving Patient had sepsis likely secondary to pneumonia, WBC 12k --> 8k Cr 1.9 --> 12 Follow blood and sputum culture DC IV fluids Obtain respiratory infectious panel Urine Legionella and streptococcal antigen are negative Continue patient on empiric ceftriaxone and azithromycin Still on O2, continue to wean as tolerated #Atrial fibrillation with RVR (NEW diagnosis) # Hypokalemia # CAD (coronary artery disease) # HTN # History of aortic valve replacement # Mild troponin elevaiton, likely demand ischemia TSH 1.2 Replete magnesium and potassium Continue patient on Cardizem drip, may switch to PO later today Cont heparin drip, discuss anticoagulation Echocardiogram: LVEF 65%, bioprosthetic AV, possible valve dysfunciton, possible mitral stenosis Cardiology consult requested #DVT prophylaxis On heparin drip - Time Spent with Patient Total time spent is greater than 50% in coordination of care (as documented) at patient's floor/unit and/or counseling patient: Internal Medicine: Result - Labs CBC & Chem 7: 10/02/18 06:03 10/02/18 06:03 Labs: Short CBC 10/01/18 10/02/18 Range/Units 14:36 06:03 WBC 12.2 H 8.5 (4.3-11.1) K/mcL Hgb 17.5 H 14.3 D (12.9-16.9) g/dL Hct 51.4 H 41.2 (37.5-50.1) % Plt Count 145 127 L (140-400) K/mcL Neutrophils # 11.0 H 6.8 (1.6-8.9) K/mcL BMP 05/17/19 05/18/19 14:36 06:03 Sodium 134 L 136 Potassium 4.2 3.3 L Chloride 96 L 104 Carbon Dioxide 25 20 L BUN 50 H 39 H Creatinine 1.95 H 1.21 Glucose 144 H 111 H Calcium 10.1 8.8 Cardiac Enzymes 10/01/18 10/01/18 10/01/18 Range/Units 14:36 17:39 23:17 Troponin I 0.04 H* 0.04 H* 0.04 H* (< 0.04) ng/mL 10/02/18 Range/Units 06:03 Troponin I 0.05 H* (< 0.04) ng/mL Liver Function 10/01/18 10/02/18 Range/Units 14:36 06:03 Total Bilirubin 2.7 H 1.6 H (0.3-1.0) mg/dL Direct Bilirubin 0.7 H (0.0-0.2) mg/dL AST 20 19 (13-39) Units/L ALT 14 11 (7-52) Units/L Alkaline Phosphatase 49 45 (34-104) Units/L Albumin 3.9 3.1 L (3.5-5.7) g/dL Urine 10/01/18 Range/Units 23:50 Urine Color Dark Yellow (Yellow) Urine Clarity Clear (Clear) Urine pH 6.0 (5.0-8.0) pH Units Ur Specific [place] 1.019 (1.010-1.025) Urine Protein 30 H (Neg-Trace) mg/dL Urine Glucose (UA) Normal (Normal) mg/dL - ABG Interpretation ABG results: PT/INR, D-dimer PT 15.3 Seconds (9.4-12.1) H 10/01/18 14:36 - Impressions Impressions Chest X-Ray 10/01/18 14:38 IMPRESSION: Airspace opacity within the mid to lower left lung suspicious for pneumonia. Recommend follow-up to ensure complete resolution. D/ / Sally Cuellar MD / Sally Cuellar MD Interpreting Provider: Sally Cuellar MD Consult Discharge Plan - Plan Referrals: Christine Rabago, SHE[employer] METAL HELPER [Primary Care Provider] - (1) Sepsis Qualifiers: Sepsis type: sepsis due to unspecified organism Qualified Code(s): A41.9 - Sepsis, unspecified organism (3) Pneumonia Qualifiers: Pneumonia type: due to unspecified organism Laterality: left Lung location: lower lobe of lung Qualified Code(s): J18.1 - Lobar pneumonia, unspecified organism (6) Hypertension Qualifiers: Hypertension type: essential hypertension Qualified Code(s): I10 - Essential (primary) hypertension (7) CAD (coronary artery disease) Qualifiers: Coronary Disease-Associated Artery/Lesion type: [place] artery [place] vs. transplanted heart: [place] heart Associated angina: without angina Qualified Code(s): I25.10 - Atherosclerotic heart disease of [place] coronary artery without angina pectoris
[2018-10-02] MEDS ORDERED: Potassium Chloride Elixir 20 MEQ/15 ML UDC PO ONE (09:43)
--- NOTE | 2018-10-02 10:20 | Cardiology Consult Note ---
Date of Encounter: 10/02/18 Time of Encounter: 10:00 Assessment and Plan (1) NICHOLE (acute kidney injury) Current Visit: Yes Status: Acute improved (2) Atrial fibrillation with RVR Current Visit: Yes Status: Acute CV score 3, dw pt and A/R/B of NOAC to reduce risk of CVA with increased risk of bleeding. Aware and agreeable - recommend xarelto 20mg daily. Additionally, will continue to titrate rate control as needed. Will be a bit more difficult to control given his PNA but he is hemo and symptom stable, so occasional high HR ok. (3) Elevated troponin Current Visit: Yes Status: Acute demand ischemia PNA and AF w NICHOLE. No chest pain or severe ischemia on EKG. Discussion w patient/family: The assessment and plan as outlined above was discussed with the patient and/or family members who expressed understanding and agreement. All questions were answered. Thank you for involving us in the care of your patient. Please call with any questions. History of Present Illness Consult date: 10/02/18 Consult reason: af, elevated trop Chief complaint: i think i have the flu History of present illness: Mr. Alexis is a 72 year old male PMHx of CAD sp h/o remote VA and abn stress/[place] hospitalization leading to PCI 02/2017 mLCx SADI, HTN, hyperlipidemia, previous VA, bioprosthetic aortic valve replacement (2006), former smoker, presents with diffuse myalgias, fever and dyspnea since Thursday diagnosed with PNA and also found to have AF RVR. Angina with last PCI and VA is nausea/vomiting Past Med Surg Social Fam HX - Past Medical History Medical history: coronary artery disease, hyperlipidemia, hypertension, myocardial infarction Additional medical history: Psoriasis, Psychiatric history: no psych history - Past Surgical History Additional surgical history: 2006 Heart valve replaced - Social History Smoking Status: Former smoker Smokeless Tobacco Status: No Alcohol use: none Drug use: none - Family History Mother Adopted: No Living Status: Hx Family Cardiac Disorders: No Hx Family Respiratory Disorders: No Hx Family Cancer: Yes Hx Family GI Disorders: No Hx Family Genitourinary Disorders: No Hx Family Endocrine Disorder: No Hx Family Musculoskeletal Disorders: No Hx Family Neuromuscular Disorders: No Hx Family Neurologic Disorders: No Hx Family HEENT Disorders: No Hx Family Autoimmune Disorders: No Hx Family Reproductive Disorders: No Hx Family Psychosocial Disorders: No Hx Family Medical Disorders: No Medications and Allergies Allopurinol [Zyloprim 100 MG] 100 mg PO DAILY 02/25/17 [History] Aspirin [Lo-Dose Aspirin EC] 81 mg PO DAILY 02/25/17 [History] Lisinopril [Zestril] 20 mg PO DAILY 02/25/17 [History] Simvastatin [Zocor] 40 mg PO QPM 02/25/17 [History] Clopidogrel Bisulfate [Plavix] 75 mg PO DAILY #30 tablet 02/27/17 [Rx] Metoprolol Tartrate 50 mg PO BID 10/01/18 [History] Allergy/AdvReac Type Severity Reaction Status Date / Time Penicillins AdvReac Nausea Verified 02/25/17 11:00 All Systems Review: The remainder of the systems were reviewed and are negative Physical Examination Vital Signs, Last 4 Hours Temp Pulse Resp BP Pulse Ox 10/02/18 10:05 18 96 10/02/18 10:03 105 16 138/74 92 10/02/18 07:44 97.7 F 10 24 128/64 95 Results 10/02/18 06:03 10/02/18 06:03 Lab Results 10/01/18 10/01/18 10/01/18 14:36 14:36 14:36 WBC 12.2 H RBC 5.63 H Hgb 17.5 H Hct 51.4 H MCV 91.3 MCH 31.1 MCHC 34.0 RDW 13.7 Plt Count 145 MPV 12.4 Immature Gran % Seg Neutrophils % 79.0 Band Neutrophils % 11.0 H Lymphocytes % 4.0 Monocytes % 6.0 Eosinophils % Basophils % Neutrophils # 11.0 H Lymphocytes # 0.5 L Monocytes # 0.7 Eosinophils # Basophils # Platelet Estimate Normal PT 15.3 H INR 1.4 Heparin Anti-Xa, Unfract Sodium 134 L Potassium 4.2 Chloride 96 L Carbon Dioxide 25 BUN 50 H Creatinine 1.95 H Est GFR ( Amer) 41 L Est GFR (Non-Af Amer) 34 L BUN/Creatinine Ratio 26 Glucose 144 H Calculated Osmolality 294 Lactic Acid Calcium 10.1 Phosphorus Magnesium Total Bilirubin 2.7 H Direct Bilirubin 0.7 H Indirect Bilirubin 2.0 H AST 20 ALT 14 Alkaline Phosphatase 49 Troponin I 0.04 H* B-Natriuretic Peptide Serum Total Protein 8.5 Albumin 3.9 Globulin 4.6 H Albumin/Globulin Ratio 0.8 L Triglycerides Cholesterol LDL Cholesterol, Calc VLDL Cholesterol, Calc HDL Cholesterol Cholesterol/HDL Ratio TSH Urine Color Urine Clarity Urine pH Ur Specific Garner Urine Protein Urine Glucose (UA) Urine Ketones Urine Blood Urine Nitrite Urine Bilirubin Urine Urobilinogen Ur Leukocyte Esterase Urine Microscopic RBC Urine Microscopic WBC Urine Bacteria Hyaline Casts Ur Culture Indicated? Hep Bs Antigen Hep B Core IgM Ab Hepatitis C Ab Screen 10/01/18 10/01/18 10/01/18 14:36 15:21 15:21 WBC RBC Hgb Hct MCV MCH MCHC RDW Plt Count MPV Immature Gran % Seg Neutrophils % Band Neutrophils % Lymphocytes % Monocytes % Eosinophils % Basophils % Neutrophils # Lymphocytes # Monocytes # Eosinophils # Basophils # Platelet Estimate PT INR Heparin Anti-Xa, Unfract Sodium Potassium Chloride Carbon Dioxide BUN Creatinine Est GFR ( Amer) Est GFR (Non-Af Amer) BUN/Creatinine Ratio Glucose Calculated Osmolality Lactic Acid 3.0 H Calcium Phosphorus 2.6 L Magnesium 1.4 L Total Bilirubin Direct Bilirubin Indirect Bilirubin AST ALT Alkaline Phosphatase Troponin I B-Natriuretic Peptide 167 H Serum Total Protein Albumin Globulin Albumin/Globulin Ratio Triglycerides Cholesterol LDL Cholesterol, Calc VLDL Cholesterol, Calc HDL Cholesterol Cholesterol/HDL Ratio TSH Urine Color Urine Clarity Urine pH Ur Specific Garner Urine Protein Urine Glucose (UA) Urine Ketones Urine Blood Urine Nitrite Urine Bilirubin Urine Urobilinogen Ur Leukocyte Esterase Urine Microscopic RBC Urine Microscopic WBC Urine Bacteria Hyaline Casts Ur Culture Indicated? Hep Bs Antigen Hep B Core IgM Ab Hepatitis C Ab Screen 10/01/18 10/01/18 10/01/18 17:39 17:39 17:39 WBC RBC Hgb Hct MCV MCH MCHC RDW Plt Count MPV Immature Gran % Seg Neutrophils % Band Neutrophils % Lymphocytes % Monocytes % Eosinophils % Basophils % Neutrophils # Lymphocytes # Monocytes # Eosinophils # Basophils # Platelet Estimate PT INR Heparin Anti-Xa, Unfract Sodium Potassium Chloride Carbon Dioxide BUN Creatinine Est GFR ( Amer) Est GFR (Non-Af Amer) BUN/Creatinine Ratio Glucose Calculated Osmolality Lactic Acid 2.2 Calcium Phosphorus Magnesium Total Bilirubin Direct Bilirubin Indirect Bilirubin AST ALT Alkaline Phosphatase Troponin I 0.04 H* B-Natriuretic Peptide Serum Total Protein Albumin Globulin Albumin/Globulin Ratio Triglycerides Cholesterol LDL Cholesterol, Calc VLDL Cholesterol, Calc HDL Cholesterol Cholesterol/HDL Ratio TSH Urine Color Urine Clarity Urine pH Ur Specific [place]ner Urine Protein Urine Glucose (UA) Urine Ketones Urine Blood Urine Nitrite Urine Bilirubin Urine Urobilinogen Ur Leukocyte Esterase Urine Microscopic RBC Urine Microscopic WBC Urine Bacteria Hyaline Casts Ur Culture Indicated? Hep Bs Antigen Nonreactive Hep B Core IgM Ab Nonreactive Hepatitis C Ab Screen Nonreactive 10/01/18 10/01/18 10/01/18 17:39 19:44 23:17 WBC RBC Hgb Hct MCV MCH MCHC RDW Plt Count MPV Immature Gran % Seg Neutrophils % Band Neutrophils % Lymphocytes % Monocytes % Eosinophils % Basophils % Neutrophils # Lymphocytes # Monocytes # Eosinophils # Basophils # Platelet Estimate PT INR Heparin Anti-Xa, Unfract 0.00 L Sodium Potassium Chloride Carbon Dioxide BUN Creatinine Est GFR ( Amer) Est GFR (Non-Af Amer) BUN/Creatinine Ratio Glucose Calculated Osmolality Lactic Acid 2.0 Calcium Phosphorus Magnesium Total Bilirubin Direct Bilirubin Indirect Bilirubin AST ALT Alkaline Phosphatase Troponin I 0.04 H* B-Natriuretic Peptide Serum Total Protein Albumin Globulin Albumin/Globulin Ratio Triglycerides Cholesterol LDL Cholesterol, Calc VLDL Cholesterol, Calc HDL Cholesterol Cholesterol/HDL Ratio TSH Urine Color Urine Clarity Urine pH Ur Specific Garner Urine Protein Urine Glucose (UA) Urine Ketones Urine Blood Urine Nitrite Urine Bilirubin Urine Urobilinogen Ur Leukocyte Esterase Urine Microscopic RBC Urine Microscopic WBC Urine Bacteria Hyaline Casts Ur Culture Indicated? Hep Bs Antigen Hep B Core IgM Ab Hepatitis C Ab Screen 10/01/18 10/01/18 10/02/18 23:17 23:50 01:53 WBC RBC Hgb Hct MCV MCH MCHC RDW Plt Count MPV Immature Gran % Seg Neutrophils % Band Neutrophils % Lymphocytes % Monocytes % Eosinophils % Basophils % Neutrophils # Lymphocytes # Monocytes # Eosinophils # Basophils # Platelet Estimate PT INR Heparin Anti-Xa, Unfract 0.19 L Sodium Potassium Chloride Carbon Dioxide BUN Creatinine Est GFR ( Amer) Est GFR (Non-Af Amer) BUN/Creatinine Ratio Glucose Calculated Osmolality Lactic Acid 1.5 Calcium Phosphorus Magnesium Total Bilirubin Direct Bilirubin Indirect Bilirubin AST ALT Alkaline Phosphatase Troponin I B-Natriuretic Peptide Serum Total Protein Albumin Globulin Albumin/Globulin Ratio Triglycerides Cholesterol LDL Cholesterol, Calc VLDL Cholesterol, Calc HDL Cholesterol Cholesterol/HDL Ratio TSH Urine Color Dark Yellow Urine Clarity Clear Urine pH 6.0 Ur Specific Garner 1.019 Urine Protein 30 H Urine Glucose (UA) Normal Urine Ketones Trace H Urine Blood Negative Urine Nitrite Negative Urine Bilirubin Small H Urine Urobilinogen Normal Ur Leukocyte Esterase Negative Urine Microscopic RBC 0-3 Urine Microscopic WBC 0-3 Urine Bacteria Moderate H Hyaline Casts None Seen Ur Culture Indicated? YES A Hep Bs Antigen Hep B Core IgM Ab Hepatitis C Ab Screen 10/02/18 10/02/18 10/02/18 06:03 06:03 06:03 WBC 8.5 RBC 4.58 Hgb 14.3 D Hct 41.2 MCV 90.0 MCH 31.2 MCHC 34.7 RDW 13.6 Plt Count 127 L MPV 12.4 Immature Gran % 0.7 Seg Neutrophils % 80.5 Band Neutrophils % Lymphocytes % 13.2 Monocytes % 4.5 Eosinophils % 0.7 Basophils % 0.4 Neutrophils # 6.8 Lymphocytes # 1.1 Monocytes # 0.4 Eosinophils # 0.1 Basophils # 0.0 Platelet Estimate Slight Decrease L PT INR Heparin Anti-Xa, Unfract Sodium 136 Potassium 3.3 L Chloride 104 Carbon Dioxide 20 L BUN 39 H Creatinine 1.21 Est GFR ( Amer) > 60 Est GFR (Non-Af Amer) 59 L BUN/Creatinine Ratio 32 H Glucose 111 H Calculated Osmolality 292 Lactic Acid Calcium 8.8 Phosphorus Magnesium Total Bilirubin 1.6 H Direct Bilirubin Indirect Bilirubin AST 19 ALT 11 Alkaline Phosphatase 45 Troponin I B-Natriuretic Peptide 186 H Serum Total Protein 6.0 L Albumin 3.1 L Globulin 2.9 Albumin/Globulin Ratio 1.1 Triglycerides 239 H Cholesterol 79 LDL Cholesterol, Calc 22 VLDL Cholesterol, Calc 48 H HDL Cholesterol 9 L Cholesterol/HDL Ratio 8.8 H TSH Urine Color Urine Clarity Urine pH Ur Specific Garner Urine Protein Urine Glucose (UA) Urine Ketones Urine Blood Urine Nitrite Urine Bilirubin Urine Urobilinogen Ur Leukocyte Esterase Urine Microscopic RBC Urine Microscopic WBC Urine Bacteria Hyaline Casts Ur Culture Indicated? Hep Bs Antigen Hep B Core IgM Ab Hepatitis C Ab Screen 10/02/18 10/02/18 10/02/18 06:03 06:03 08:40 WBC RBC Hgb Hct MCV MCH MCHC RDW Plt Count MPV Immature Gran % Seg Neutrophils % Band Neutrophils % Lymphocytes % Monocytes % Eosinophils % Basophils % Neutrophils # Lymphocytes # Monocytes # Eosinophils # Basophils # Platelet Estimate PT INR Heparin Anti-Xa, Unfract 0.27 L Sodium Potassium Chloride Carbon Dioxide BUN Creatinine Est GFR ( Amer) Est GFR (Non-Af Amer) BUN/Creatinine Ratio Glucose Calculated Osmolality Lactic Acid Calcium Phosphorus Magnesium Total Bilirubin Direct Bilirubin Indirect Bilirubin AST ALT Alkaline Phosphatase Troponin I 0.05 H* B-Natriuretic Peptide Serum Total Protein Albumin Globulin Albumin/Globulin Ratio Triglycerides Cholesterol LDL Cholesterol, Calc VLDL Cholesterol, Calc HDL Cholesterol Cholesterol/HDL Ratio TSH 1.215 Urine Color Urine Clarity Urine pH Ur Specific Garner Urine Protein Urine Glucose (UA) Urine Ketones Urine Blood Urine Nitrite Urine Bilirubin Urine Urobilinogen Ur Leukocyte Esterase Urine Microscopic RBC Urine Microscopic WBC Urine Bacteria Hyaline Casts Ur Culture Indicated? Hep Bs Antigen Hep B Core IgM Ab Hepatitis C Ab Screen Consult Discharge Plan - Plan Referrals: Christine Rabago CNP [Primary Care Provider] -
[2018-10-02] MEDS: Heparin 25,000 UNIT/250 ML D5W 25,000 UNIT/250 ML IV.SOLN IVC SCH (12:21)
[2018-10-02] MEDS: Azithromycin 500 MG in D5% in Water 250 ML IVPB SCH (17:17)
[2018-10-02 17:51] LABS: Hepatitis A Antibody IgM Nonreactive (Nonreactive)
[2018-10-03 00:17] LABS: Hematocrit 42.3 % (37.5-50.1); Hemoglobin 14.3 g/dL (12.9-16.9); Mean Corpuscular HGB Conc 33.8 g/dL (31.6-35.5); Mean Corpuscular Hemoglobin 30.8 pg (28.0-33.3); Mean Platelet Volume 11.8 fL (9.4-12.4); Platelet Count 139 K/mcL (140-400); Red Blood Count 4.65 M/mcL (4.19-5.50); Red Cell Distribution Width 13.7 % (11.5-14.5)
[2018-10-03 00:36] LABS: Alanine Aminotransferase 15 Units/L (7-52); Albumin 2.9 g/dL (3.5-5.7); Albumin/Globulin Ratio 0.9 (1.1-2.2); Alkaline Phosphatase 47 Units/L (34-104); Aspartate Amino Transferase 27 Units/L (13-39); BUN/Creatinine Ratio 25 (6-26); Bilirubin,Total 1.2 mg/dL (0.3-1.0); Blood Urea Nitrogen 26 mg/dL (8-23); Calcium 8.5 mg/dL (8.6-10.3); Carbon Dioxide 21 mEq/L (23-29); Chloride 104 mEq/L (98-107); Globulin 3.3 g/dL (2.4-3.5); Glucose 94 mg/dL (70-105); Magnesium 1.7 mg/dL (1.6-2.6); Osmolality,Calculated 287 (280-300); Potassium 3.2 mEq/L (3.5-5.1); Sodium 136 mEq/L (136-145); Total Protein 6.2 g/dL (6.4-8.9); eGFR For Non-African Americans > 60 (> 60)
[2018-10-03] MEDS: *HR* Heparin 5,000 UNIT/ML VIAL IVP PRN (01:14)
[2018-10-03] MEDS: Heparin 25,000 UNIT/250 ML D5W 25,000 UNIT/250 ML IV.SOLN IVC SCH (03:31)
[2018-10-03] MEDS: Ipratropium/Albuterol Neb 3 ML IH SCH ×4 (04:28→21:16)
--- NOTE | 2018-10-03 07:26 | Event Note ---
Date of Encounter: 10/03/18 Time of Encounter: 07:30 - Cardiology Event Note HR controlled on 15mg cardizem, ordered transition to 360mg cardizem. Additionally, nonvalvular AF, will switch over to Xarelto tonight. Stable for discharge from cardio perspective, fu in clinic. Repeat TTE in 6m for bioprosthetic aortic valve stenosis and mild-moderate mitral stenosis.
[2018-10-03] MEDS: Diltiazem CD (24hr) 180 MG CAPSULE PO SCH (08:05)
[2018-10-03] MEDS: Aspirin Enteric Coated 81 MG Tablet PO SCH (08:05)
[2018-10-03] MEDS: cefTRIAXone 1,000 MG in Water for inj. (sterile) 20 ML 10 ML IVP SCH (08:05)
--- NOTE | 2018-10-03 09:12 | Internal Med Progress Note ---
Hospitalist Progress Note - Encounter Date of Encounter: 10/03/18 Time of Encounter: 08:53 - Subjective Interval History: no chest pain some dyspnea and fatigue after using the restroom overall feeling better than admission, not back to baseline abdominal soreness has resolved had BM today no headache, dizziness, fevers or chills - Exam Vitals: Temp Pulse Resp BP Pulse Ox 97.6 F 76 24 134/79 92 10/03/18 07:27 10/03/18 07:27 10/03/18 07:27 10/03/18 07:27 10/03/18 07:27 Exam: Constitutional: Vitals as noted. Conversant. no respiratory distress Eyes : Sclera white, conjunctiva clear, ENT : Oropharyngeal exam unremarkable. dry mucus membranes. No JVD, Respiratory : decreased breath sounds at bases, bilateral coarse crackles, left > right Cardiovascular : irregular +S1, +S2. 2/6 systolic murmur. GI/Abdominal : Soft, mildly distended, no rebound or tenderness Musculoskeletal: no deformity noted. trace edema warm extremities, radial pulses palpable and symmetrical Neurological: AO X3, CN II-XII grossly intact, grossly normal motor and sensory exam. - Assessment and Plan (1) Sepsis Current Visit: Yes Status: Acute (2) NICHOLE (acute kidney injury) Current Visit: Yes Status: Acute (3) Pneumonia Current Visit: Yes Status: Acute (4) Atrial fibrillation with RVR Current Visit: Yes Status: Acute (5) History of aortic valve replacement Current Visit: No Status: Chronic (6) Hypertension Current Visit: No Status: Chronic (7) CAD (coronary artery disease) Current Visit: No Status: Chronic (8) DVT prophylaxis Current Visit: No Status: Acute - Summary of Assessment and Plan Summary of Assessment and Plan: Per H&P: ""Mr. Alexis is a 72 year old male past medical history of hypertension, hyperlipidemia, aortic valve replacement in 2006, past smoker, coronary artery disease with stenting 2017, psoriasis, came in with complain of shortness of breath and myalgia and feeling sick. Patient has been feeling sick since Thursday and initially felt he had a flu. He saw his primary care doctor who asked him to come to ER. He has been feeling more short of breath for past 2-3 days. He has associated diffuse pain and myalgia. Denies any nausea and vomiting. Has some diffuse abdominal pain and body aches. Denies any diarrhea or urinary complaints. He said had chills at home but did not measure any fever. Patient was evaluated in ER and was found to have elevated white count, tachycardia or tachypnea and elevated lactic acid. Chest x-ray showed pne umonia. Patient was started on ceftriaxone and azithromycin and IV fluids. Patient was found to have A. fib with RVR and elevated troponin and NICHOLE.. He had diffuse chest pain which was reproducible. Patient was started on antibiotics and IV fluid and admission was requested. Evaluation patient in ER patient appears in mild respiratory distress. Denies any chest pain however has diffuse body ache. Slightly feeling better than he came in. Denies any lightheadedness nausea."" # Sepsis, resolved #Community acquired pneumonia, improving # Pre-renal NICHOLE, resolved # Hypoxia requiring supplemental oxygen Patient had sepsis likely secondary to pneumonia, WBC 12k --> 7k Cr 1.9 --> 1.0 Follow blood and sputum culture Obtain respiratory infectious panel Urine Legionella and streptococcal antigen are negative Continue patient on IV ceftriaxone and azithromycin - He is still on supplemental O2 2 l/nc which is new for him, and O2 sat is 92% on this, encouraged incentive spirometry and try to wean off of O2 prior to discharge - check ambulatory pulse ox tomorrow #Atrial fibrillation with RVR (NEW diagnosis), improved # CAD (coronary artery disease) # HTN # History of aortic valve replacement # Mild troponin elevation, likely demand ischemia TSH 1.2 Replete magnesium and potassium Echocardiogram: LVEF 65%, bioprosthetic AV, possible valve dysfunction, possible mitral stenosis - Cardiology appreciated: switch from diltiazem gtt to PO, switch heparin gtt to Xarelto, stable for discharge from cardio perspective, fu in clinic. Repeat TTE in 6m for bioprosthetic aortic valve stenosis and mild-moderate mitral stenosis. # Hypokalemia/hyomagnesemia, persistent - Replete, may need supplementation on discharge #DVT prophylaxis On heparin drip, will go on Xarelto later today - Time Spent with Patient Total time spent is greater than 50% in coordination of care (as documented) at patient's floor/unit and/or counseling patient: Internal Medicine: Result - Labs CBC & Chem 7: 10/03/18 00:05 10/03/18 00:05 Labs: Short CBC 10/03/18 Range/Units 00:05 WBC 7.6 (4.3-11.1) K/mcL Hgb 14.3 (12.9-16.9) g/dL Hct 42.3 (37.5-50.1) % Plt Count 139 L (140-400) K/mcL BMP 10/03/18 00:05 Sodium 136 Potassium 3.2 L Chloride 104 Carbon Dioxide 21 L BUN 26 H Creatinine 1.04 Glucose 94 Calcium 8.5 L Liver Function 10/03/18 Range/Units 00:05 Total Bilirubin 1.2 H (0.3-1.0) mg/dL AST 27 (13-39) Units/L ALT 15 (7-52) Units/L Alkaline Phosphatase 47 (34-104) Units/L Albumin 2.9 L (3.5-5.7) g/dL - ABG Interpretation ABG results: PT/INR, D-dimer PT 15.3 Seconds (9.4-12.1) H 10/01/18 14:36 - Impressions Impressions Echocardiogram 10/01/18 17:14 Impressions: LVEF 65%. Mild concentric left ventricular hypertrophy. Atypical septal motion consistent with post-operative status. Indeterminate diastolic function. Normal right ventricular structure and function. Bioprosthetic aortic valve not well visualized. Increased transaortic gradients may represent valve dysfunction (PV 3.6m/s, MG 33, DVI 0.32, EOA 1.0cm2). Mild paravalvular aortic regurgitation. Possible mitral stenosis, MG 5 mmHg at 102 bpm. No pulmonary hypertension. Left Ventricular Wall Motion: Rest Echo Findings All wall segments showed normal motion. Findings: Study Quality * Technically adequate exam. ECG Findings * Atrial fibrillation. Left Ventricle * LVEF 65%. * Mild concentric left ventricular hypertrophy. * Atypical septal motion consistent with post-operative status. * Indeterminate diastolic function. Right Ventricle * Normal right ventricular structure and function. Left Atrium * Severely dilated left atrium. Right Atrium * Normal right atrial size. Aortic Valve * Bioprosthetic aortic valve not well visualized. * Mild paravalvular aortic regurgitation. Mitral Valve * No mitral regurgitation. * Moderate mitral annular calcification * Mitral valve not well visualized. * Possible mitral stenosis, MG 5 mmHg at 102 bpm. Tricuspid Valve * Tricuspid valve not well visualized. * No tricuspid regurgitation. * Estimated RA pressure is 3 mmHg. * No pulmonary hypertension. Pulmonic Valve * Pulmonic valve is not well visualized. * No pulmonic stenosis. * No pulmonic regurgitation. Pulmonary Artery * Pulmonary artery not well visualized. Aorta * Normally sized aortic root. Pericardium * There is no pericardial effusion present. Interatrial Septum * No evidence of PFO by color Doppler. IVC * Normal IVC dimensions and inspiratory collapse. Consult Discharge Plan - Plan Referrals: Christine Rabago, [employer] [Primary Care Provider] - (1) Sepsis Qualifiers: Sepsis type: sepsis due to unspecified organism Qualified Code(s): A41.9 - Sepsis, unspecified organism (3) Pneumonia Qualifiers: Pneumonia type: due to unspecified organism Laterality: left Lung location: lower lobe of lung Qualified Code(s): J18.1 - Lobar pneumonia, unspecified organism (6) Hypertension Qualifiers: Hypertension type: essential hypertension Qualified Code(s): I10 - Essential (primary) hypertension (7) CAD (coronary artery disease) Qualifiers: Coronary Disease-Associated Artery/Lesion type: [place] artery [place] vs. mariee splanted heart: [place] heart Associated angina: without angina Qualified Code(s): I25.10 - Atherosclerotic heart disease of [place] coronary artery without angina pectoris
[2018-10-03] MEDS ORDERED: Magnesium Oxide 400 MG TABLET PO ONE ×2 (09:22→16:30)
[2018-10-03 11:45] LABS: Adenovirus Not Detected (Not Detect); Coronavirus 229E Not Detected (Not Detect); Coronavirus HKU1 Not Detected (Not Detect); Coronavirus NL63 Not Detected (Not Detect); Coronavirus OC43 Not Detected (Not Detect); Human Metapneumovirus Not Detected (Not Detect); Human Rhinovirus/Enterovirus Not Detected (Not Detect)
[2018-10-03 11:46] LABS: Bordetella Pertussis Not Detected (Not Detect); Chlamydophila pneumoniae Not Detected (Not Detect); Influenza A Subtype 2009 H1 Not Detected (Not Detect); Influenza A Untypeable Not Detected (Not Detect); Influenza B Not Detected (Not Detect); Mycoplasma pneumoniae Not Detected (Not Detect); Parainfluenza Virus 1 Not Detected (Not Detect); Parainfluenza Virus 2 Not Detected (Not Detect); Parainfluenza Virus 3 Not Detected (Not Detect); Parainfluenza Virus 4 Not Detected (Not Detect); Respiratory Syncytial Virus Not Detected (Not Detect)
[2018-10-03] MEDS: *HR* Rivaroxaban 10 MG TABLET PO SCH (15:59)
[2018-10-03] MEDS ORDERED: Azithromycin 500 MG VIAL ONE (16:31)
[2018-10-03] MEDS: Azithromycin 500 MG in D5% in Water 250 ML IVPB SCH (16:33)
[2018-10-04] MEDS: Ipratropium/Albuterol Neb 3 ML IH SCH ×4 (03:24→21:57)
[2018-10-04] MEDS: Aspirin Enteric Coated 81 MG Tablet PO SCH (07:56)
[2018-10-04] MEDS: Diltiazem CD (24hr) 180 MG CAPSULE PO SCH (07:56)
[2018-10-04] MEDS: cefTRIAXone 1,000 MG in Water for inj. (sterile) 20 ML 10 ML IVP SCH (07:57)
[2018-10-04 08:54] LABS: BUN/Creatinine Ratio 14 (6-26); Blood Urea Nitrogen 14 mg/dL (8-23); Calcium 9.5 mg/dL (8.6-10.3); Carbon Dioxide 25 mEq/L (23-29); Chloride 101 mEq/L (98-107); Glucose 119 mg/dL (70-105); Magnesium 1.5 mg/dL (1.6-2.6); Osmolality,Calculated 286 (280-300); Potassium 3.7 mEq/L (3.5-5.1); Sodium 137 mEq/L (136-145); eGFR For Non-African Americans > 60 (> 60)
--- NOTE | 2018-10-04 09:44 | Internal Med Progress Note ---
Hospitalist Progress Note - Encounter Date of Encounter: 10/04/18 Time of Encounter: 09:42 - Subjective Interval History: Patient is still complaining of cough but not able to spit out. Having some shortness of breath on exertion. Review of the labs and vitals. Low magnesium Denies fever chills nausea vomiting headache dizziness chest pain abdominal pain diarrhea - Exam Vitals: Temp Pulse Resp BP Pulse Ox 98.0 F 115 22 144/71 91 10/04/18 07:23 10/04/18 08:22 10/04/18 07:23 10/04/18 07:23 10/04/18 08:00 Exam: Constitutional: No acute distress. Has intermittent cough with gurgling sound. Oxygen by nasal cannula 2 L Eyes : Sclera white, conjunctiva clear, ENT : Moist mucus membranes. No JVD, Respiratory : decreased breath sounds at bases, bilateral coarse crackles, left > right Cardiovascular : irregular +S1, +S2. 2/6 systolic murmur. GI/Abdominal : Soft, nontender positive bowel sounds, no rebound Musculoskeletal: no deformity noted. trace edema warm extremities, radial pulses palpable and symmetrical Neurological: AO X3, CN II-XII grossly intact, grossly normal motor and sensory exam. - Assessment and Plan (1) Pneumonia Current Visit: Yes Status: Acute Assessment and Plan: Patient is still has crepitation on left lung. Productive cough but not able to spit out. Need good pulmonary toileting. Respiratory consultation. A spirometry. Mucomyst nebulizer. Will keep patient another day for "pulmonary toileting/bronchial hygiene while monitoring tachycardia due to A. fib RVR. (2) Atrial fibrillation with RVR Current Visit: Yes Status: Acute Assessment and Plan: New onset Is still RVR heart rate varies from 110-124. Started home dose beta you. Continue to monitor in telemetry today. Normal TSH Replete magnesium and phosphate-electrolyte imbalance Stopped Cardizem drip. Started oral Cardizem Stopped heparin drip-started xarelto Possibly precipitated from acute infection on baseline CAD Talk to cardiology about his opinion about resuming Plavix along with aspirin and xarelto- they will reevaluate the pt to assist in dc Impressions: LVEF 65%. Mild concentric left ventricular hypertrophy. Atypical septal motion consistent with post-operative status. Indeterminate diastolic function. Normal right ventricular structure and function. Bioprosthetic aortic valve not well visualized. Increased transaortic gradients may represent valve dysfunction (PV 3.6m/s, MG 33, DVI 0.32, EOA 1.0cm2). Mild paravalvular aortic regurgitation. Possible mitral stenosis, MG 5 mmHg at 102 bpm. No pulmonary hypertension. Left Ventricular Wall Motion: Rest Echo Findings All wall segments showed normal motion. (3) History of aortic valve replacement Current Visit: No Status: Chronic Assessment and Plan: Electro Mechanical Designer recommended Repeat TTE in 6m for bioprosthetic aortic valve stenosis and mild-moderate mitral stenosis. (4) Hypertension Current Visit: No Status: Chronic Assessment and Plan: Patient is on Cardizem at this time. Will resume lisinopril and beta you. Slight high blood pressure. (5) CAD (coronary artery disease) Current Visit: No Status: Chronic Assessment and Plan: continue home dose medicin (6) Sepsis Current Visit: Yes Status: Acute Assessment and Plan: Patient has sepsis likely secondary to pneumonia Follow blood and sputum culture-with no growth yet Urine culture with no growth Legionella streptococcal antigen negative Respiratory panel negative Repeat lactate normal. Continue Rocephin and azithromycin to treat underlying pneumonia (7) NICHOLE (acute kidney injury) Current Visit: Yes Status: Acute Assessment and Plan: Improved creatinine. Likely prerenal in the setting of sepsis Status post IV fluid resuscitation. Restarted lisinopril. Monitor BMP (8) Elevated troponin Current Visit: Yes Status: Acute Assessment and Plan: EKG with A. fib with RVR and some ST depression possibly related to LVH Consulted cardiology-Possibly demand ischemia related to sepsis, A. fib RVR with NICHOLE (9) DVT prophylaxis Current Visit: No Status: Acute Assessment and Plan: xarelto - Time Spent with Patient Total time spent is greater than 50% in coordination of care (as documented) at patient's floor/unit and/or counseling patient: 25 - 35 minutes Internal Medicine: Result - Labs CBC & Chem 7: 10/03/18 00:05 10/04/18 07:46 Labs: BMP 10/04/18 07:46 Sodium 137 Potassium 3.7 Chloride 101 Carbon Dioxide 25 BUN 14 Creatinine 0.98 Glucose 119 H Calcium 9.5 - ABG Interpretation ABG results: PT/INR, D-dimer PT 15.3 Seconds (9.4-12.1) H 10/01/18 14:36 Consult Discharge Plan - Plan Referrals: Christine Rabago CNP [Primary Care Provider] - 10/12/18 1:00 pm Fracisco Petit MD [Partnered Physician] - (Office will call patient at home with follow up appointment) (1) Pneumonia Qualifiers: Pneumonia type: due to unspecified organism Laterality: left Lung location: lower lobe of lung Qualified Code(s): J18.1 - Lobar pneumonia, unspecified organism (4) Hypertension Qualifiers: Hypertension type: essential hypertension Qualified Code(s): I10 - Essential (primary) hypertension (5) CAD (coronary artery disease) Qualifiers: Coronary Disease-Associated Artery/Lesion type: [place] artery [place] vs. transplanted heart: [place] heart Associated angina: without angina Qualified Code(s): I25.10 - Atherosclerotic heart disease of [place] coronary artery without angina pectoris (6) Sepsis Qualifiers: Sepsis type: sepsis due to unspecified organism Qualified Code(s): A41.9 - Sepsis, unspecified organism
--- NOTE | 2018-10-04 09:45 | Electrocardiograph Report ---
[address] [place], [place] [address] Test Date: 2018-10-01 Pat Name: Morgan Alexis Department: [id number] Room: 2N04 Gender: M Hospital Insurance Clerk: : 1945 Requested By: Hunter Lizama Order Number: [id number] Reading MD: Shelton Babin Measurements Intervals [place] Rate: 143 P: IA: QRS: 65 QRSD: 91 T: -69 QT: 274 QTc: 423 Interpretive Statements Atrial fibrillation with rapid ventricular response Possible LVH with secondary repol abnrm Electronically Signed On 10-04-2018 9:43:57 EDT by Shelton Babin
[2018-10-04] MEDS: Acetylcysteine 10% 2 ML INHSOL IH SCH ×3 (10:40→21:57)
[2018-10-04] MEDS ORDERED: *HR* Metoprolol 5 MG/5 ML VIAL IVP ONE (12:43)
--- NOTE | 2018-10-04 13:29 | Cardiology Progress Note ---
Date of Encounter: 10/04/18 Time of Encounter: 13:00 Assessment and Plan (1) Atrial fibrillation with RVR Current Visit: Yes Status: Acute Per cardiology: -New A.fib RVR in the setting of PNA. -[id number] score 3, dw pt and A/R/B of NOAC to reduce risk of CVA with increased risk of bleeding. Aware and agreeable. Started on xarelto. -Average HR previous 12 hours noted to be 112 a.fib. ON cardizem CD 360mg and lopressor 50mg BID. -Will give one time dose of lopressor IV now. -Will increase lopressor to 100mg BID. -Continue xarelto. Continue ASA. Stop plavix to avoid triple therapy. (2) History of aortic valve replacement Current Visit: No Status: Chronic Per cardiology: -Known AV replacement. -TTE this admission with possible prosthetic AV dysfunction, mild paravavular AR. -Recommended for repeat TTE in 6 months as outpatient. (3) Elevated troponin Current Visit: Yes Status: Acute Per cardiology: -Eleavted trops in the setting of PNA, a.fib RVR, NICHOLE. -Denies chest pain. -No acute ischemic ECG changes noted. -TTE with LVEF preserved, no wall motion abnormalities. -demand ischemia PNA and AF w NICHOLE. No cardiac rehab consult warranted. -Continue ASA, statin, BB. Discussion w patient/family: The assessment and plan as outlined above was discussed with the patient who expressed understanding and agreement. All questions were answered. Thank you f or involving us in the care of your patient. Please call with any questions. Discussed and reviewed with Subjective Principal diagnosis: PNA Interval history: Patient reports he feels better today. Reports still not back at baseline. Objective Vital Signs, Last 4 Hours Temp Pulse Resp BP Pulse Ox 10/04/18 11:41 97.6 F 124 20 167/78 90 10/04/18 10:40 18 92 General: Conversant, Other (Mild conversational dyspnea. ) HEENT: Atraumatic, Normocephaly, Mucus Membranes Moist Neck: No JVD, Normal carotid pulses Cardiac: Normal S1 and S2, No Murmur, Other (Irregularly irregular) Lungs: Other (Lung sounds diminished throughout. ) Neuro: Alert and responsive, No focal deficits noted Abdomen: Soft, Non-Tender Skin: No rashes noted on visualized skin Musculoskeletal: No Chest Wall Tenderness Extremities: No Clubbing, No Cyanosis, No Edema, Normal Pulses Results 10/03/18 00:05 10/04/18 07:46 Lab Results Active Medications Acetylcysteine (Acetylcysteine 10%) 2 ml [facility] [id number] [facility] Stop: 04/05/19 09:46 Last Admin: 10/04/18 10:40 Dose: 2 ml Documented by: Albuterol/Ipratropium (Duoneb) 3 ml [facility] [id number] [facility] Stop: 04/02/19 22:01 Last Admin: 10/04/18 10:40 Dose: 3 ml Documented by: Allopurinol (Zyloprim) 100 mg PO DAILY [facility] Stop: 04/03/19 09:01 Last Admin: 10/04/18 07:56 Dose: 100 mg Documented by: Aspirin (Aspirin Ec) 81 mg PO DAILY [facility] Stop: 04/03/19 09:01 Last Admin: 10/04/18 07:56 Dose: 81 mg Documented by: Diltiazem HCl (Cardizem Cd) 360 mg PO DAILY [facility] Stop: 04/04/19 09:01 Last Admin: 10/04/18 07:56 Dose: 360 mg Documented by: Azithromycin 500 mg/ Dextrose 250 mls @ 252 mls/hr IVPB Q24H [facility] Stop: 04/03/19 18:01 Last Admin: 10/03/18 16:33 Dose: 252 mls/hr Documented by: Ceftriaxone Sodium 1,000 mg/ (Sterile Water) 10 mls @ 600 mls/hr IVP DAILY [facility] Stop: 04/03/19 09:01 Last Admin: 10/04/18 07:57 Dose: 600 mls/hr Documented by: Levalbuterol HCl (Xopenex) 0.63 mg IH [id number] PRN PRN Reason: Shortness Of Breath Stop: 04/02/19 22:01 Lisinopril (Zestril) 10 mg PO DAILY [facility]; Protocol Stop: 04/06/19 09:01 Melatonin (Melatonin) 3 mg PO HS PRN PRN Reason: Insomnia Stop: 04/02/19 22:30 Last Admin: 10/01/18 23:01 Dose: 3 mg Documented by: Metoprolol Tartrate (Lopressor) 100 mg PO BID [facility] Stop: 04/05/19 21:01 Metoprolol Tartrate (Lopressor) 5 mg IVP ONCE ONE Stop: 10/04/18 12:44 Rivaroxaban (Xarelto) 20 mg PO 1700 [facility] Stop: 04/04/19 17:01 Last Admin: 10/03/18 15:59 Dose: 20 mg Documented by: Simvastatin (Zocor) 40 mg PO QPM [facility]; Protocol Stop: 04/05/19 18:01 Laboratory Tests 10/04/18 07:46 Creatinine 0.98 - Imaging and Cardiology Chest Xray: report reviewed Echo: report reviewed - EKG Interpretation EKG results cardiology: other (Telemetry reveiwed with average HR previous 12 hours noted to be 112, a.fib. PVCs noted.) Consult Discharge Plan - Plan Referrals: Christine Rabago CNP [Primary Care Provider] - 10/12/18 1:00 pm Fracisco Petit MD [Partnered Physician] - (Office will call patient at home with follow up appointment)
[2018-10-04] MEDS: Azithromycin 500 MG in D5% in Water 250 ML IVPB SCH (17:13)
[2018-10-04] MEDS: *HR* Rivaroxaban 10 MG TABLET PO SCH (17:13)
[2018-10-04] MEDS: Metoprolol 100 MG TABLET PO SCH (22:11)
[2018-10-05] MEDS: Ipratropium/Albuterol Neb 3 ML IH SCH (04:14)
[2018-10-05 04:50] LABS: Mean Corpuscular HGB Conc 33.5 g/dL (31.6-35.5); Mean Corpuscular Hemoglobin 31.1 pg (28.0-33.3); Mean Corpuscular Volume 92.7 fL (83.0-100.0); Mean Platelet Volume 11.6 fL (9.4-12.4); Platelet Count 202 K/mcL (140-400); Red Blood Count 5.18 M/mcL (4.19-5.50); Red Cell Distribution Width 14.1 % (11.5-14.5)
[2018-10-05 05:06] LABS: Hemoglobin 16.1 g/dL (12.9-16.9)
[2018-10-05 05:08] LABS: BUN/Creatinine Ratio 17 (6-26); Blood Urea Nitrogen 18 mg/dL (8-23); Calcium 9.9 mg/dL (8.6-10.3); Carbon Dioxide 25 mEq/L (23-29); Chloride 100 mEq/L (98-107); Glucose 115 mg/dL (70-105); Magnesium 1.9 mg/dL (1.6-2.6); Osmolality,Calculated 283 (280-300); Potassium 4.3 mEq/L (3.5-5.1); Sodium 135 mEq/L (136-145); eGFR For Non-African Americans > 60 (> 60)
[2018-10-05 05:38] LABS: Eosinophils # 0.2 K/mcL (0.0-0.6); Lymphocytes # 2.1 K/mcL (0.6-4.6); Monocytes # 1.2 K/mcL (0.0-1.3); Neutrophils # 7.9 K/mcL (1.6-8.9); Platelet Estimate Normal (Normal); Reactive Lymphocytes Present (Not Present)
[2018-10-05] MEDS ORDERED: Ipratropium/Albuterol Neb 3 ML IH PRN (07:55)
--- NOTE | 2018-10-05 08:59 | Discharge Summary ---
- NOTES TO OUTPATIENT PROVIDER Notes to Outpatient Provider: Follow with PCP in 3-5 days-follow final blood culture report. Follow with cardiology in 1 week. Continue spirometry Orders not resulted at time of discharge: Pending orders 10/01/18 15:20 Culture,Blood [BC] Stat 10/01/18 17:19 Culture,Sputum with Gram Stain [RM] Stat Date of Encounter: 10/05/18 Time of Encounter: 08:55 - Discharge Diagnosis (1) Pneumonia Priority: Primary Status: Acute Assessment and Plan: Improving. During his stay patient had Rocephin and erythromycin. Will discharge patient on Omnicef for 5 days and Zithromax for 1 day to complete the course. Continue albuterol nebulizer spirometry. Follow-up with primary care physician. Mild leukocytosis but no fever and clinically improving could be reactionary response. Patient is also on dual antibiotic. Follow with PCP if any concern call his office early- Qualifiers: Pneumonia type: due to unspecified organism Laterality: left Lung location: lower lobe of lung Qualified Code(s): J18.1 - Lobar pneumonia, unspecified organism (2) Atrial fibrillation with RVR Priority: Primary Status: Acute Assessment and Plan: New onset. Normal sinus rhythm with reasonably controlled heart rate. Increase dose of beta you, continue oral Cardizem and Xarelto. Discussed discharge plan to cardiology who advised to discharge patient on aspirin and Xarelto but is stopped Plavix to avoid triple therapy that can increase risk of bleeding. During discharge decreased from dose of lisinopril 10 mg daily instead 20 mg. Advised to monitor blood pressure and further adjustment of medication as per PCP Impressions: LVEF 65%. Mild concentric left ventricular hypertrophy. Atypical septal motion consistent with post-operative status. Indeterminate diastolic function. Normal right ventricular structure and function. Bioprosthetic aortic valve not well visualized. Increased transaortic gradients may represent valve dysfunction (PV 3.6m/s, MG 33, DVI 0.32, EOA 1.0cm2). Mild paravalvular aortic regurgitation. Possible mitral stenosis, MG 5 mmHg at 102 bpm. No pulmonary hypertension. Left Ventricular Wall Motion: Rest Echo Findings All wall segments showed normal motion. (3) History of aortic valve replacement Priority: Primary Status: Chronic Assessment and Plan: Polishing Wheel Repairer recommended Repeat TTE in 6m for bioprosthetic aortic valve stenosis and mild-moderate mitral stenosis. (4) Hypertension Priority: Primary Status: Chronic Assessment and Plan: Will discharge patient on Cardizem, increase dose of beta you and decreased dose of lisinopril 10 mg. Further monitoring of BP as per PCP Qualifiers: Hypertension type: essential hypertension Qualified Code(s): I10 - Essential (primary) hypertension (5) CAD (coronary artery disease) Priority: Secondary Status: Chronic Assessment and Plan: continue home dose medicin Qualifiers: Coronary Disease-Associated Artery/Lesion type: [place] artery [place] vs. transplanted heart: [place] heart Associated angina: without angina Qualified Code(s): I25.10 - Atherosclerotic heart disease of [place] coronary artery without angina pectoris (6) Sepsis Priority: Primary Status: Acute Assessment and Plan: Improved. Patient has sepsis likely secondary to pneumonia Follow blood culture-with no growth yet Urine culture with no growth Legionella streptococcal antigen negative Respiratory panel negative Repeat lactate normal. Qualifiers: Sepsis type: sepsis due to unspecified organism Qualified Code(s): A41.9 - Sepsis, unspecified organism (7) NICHOLE (acute kidney injury) Priority: Primary Status: Acute Assessment and Plan: Improved creatinine. Likely prerenal in the setting of sepsis Status post IV fluid resuscitation. Restarted lisinopril. (8) Elevated troponin Priority: Primary Status: Acute Assessment and Plan: EKG with A. fib with RVR and some ST depression possibly related to LVH Consulted cardiology-Possibly demand ischemia related to sepsis, A. fib RVR with NICHOLE Hospital course: Mr. Alexis is a 72 year old male got admitted for A. fib with RVR, pneumonia with raised troponin. IV antibiotic DuoNeb oxygen supplementation as started. Consulted cardiology. Please see detail in diagnosis section of discharge summary. Will discharge patient on beta you, calcium channel you, Xarelto and aspirin but is stopped Plavix after discussing with cardiology. Will also discharge patient on Omnicef and azithromycin to complete 10 days antibiotic course. 6 minute walk test ordered before discharge- did not qualify for home oxygen. At the time of discharge patient is clinically hemodynamically stable, tolerating oral diet ambulating with normal sinus rhythm. Discharge discussed with: patient, nurse, social work - Time Spent with Patient Total time spent providing and/or coordinating discharge services: Time spent: Less than 30 minutes - Discharge Medications Prescriptions: New Diltiazem CD (24hr) [Cardizem CD] 360 mg PO DAILY #30 cap.er.24h Metoprolol [Lopressor] 100 mg PO BID #60 tablet Rivaroxaban [Xarelto] 20 mg PO 1700 #30 tablet Levalbuterol Neb [Xopenex Neb] 0.63 mg IH [id number] PRN #1 vial.neb PRN Reason: Shortness Of Breath Lisinopril [Zestril] 10 mg PO DAILY #30 tablet Azithromycin [Zithromax] 500 mg PO Q24H #1 tablet Cefdinir [Omnicef] 300 mg PO BID #10 capsule Continued Simvastatin [Zocor] 40 mg PO QPM Allopurinol [Zyloprim 100 MG] 100 mg PO DAILY Aspirin [Lo-Dose Aspirin EC] 81 mg PO DAILY Discontinued Lisinopril [Zestril] 20 mg PO DAILY Clopidogrel Bisulfate [Plavix] 75 mg PO DAILY #30 tablet Metoprolol Tartrate 50 mg PO BID Home Medications: Allopurinol [Zyloprim 100 MG] 100 mg PO DAILY 02/25/17 [History] Aspirin [Lo-Dose Aspirin EC] 81 mg PO DAILY 02/25/17 [History] Simvastatin [Zocor] 40 mg PO QPM 02/25/17 [History] Azithromycin [Zithromax] 500 mg PO Q24H #1 tablet 10/05/18 [Rx] Cefdinir [Omnicef] 300 mg PO BID #10 capsule 10/05/18 [Rx] Diltiazem CD (24hr) [Cardizem CD] 360 mg PO DAILY #30 cap.er.24h 10/05/18 [Rx] Levalbuterol Neb [Xopenex Neb] 0.63 mg IH [id number] PRN #1 vial.neb 10/05/18 [Rx] Lisinopril [Zestril] 10 mg PO DAILY #30 tablet 10/05/18 [Rx] Metoprolol [Lopressor] 100 mg PO BID #60 tablet 10/05/18 [Rx] Rivaroxaban [Xarelto] 20 mg PO 1700 #30 tablet 10/05/18 [Rx] Allergies/Adverse Reactions: Allergy/AdvReac Type Severity Reaction Status Date / Time Penicillins AdvReac Nausea Verified 02/25/17 11:00 Date of admission: 10/01/18 19:46 Primary care physician: Christine Rabago, Consults: 10/01/18 18:19 Consult to Cardiology [CONS] Routine Comment: Consulting Provider: Cardiology Malorie Reason for Consult: new afib, elevated troponin, cad Call Completed: No 10/04/18 08:25 Consult to Nurse Navigator [CONS] Routine Comment: pneumonia - Constitutional Vitals: Temp Pulse Resp BP Pulse Ox 97.7 F 97 16 124/71 94 10/05/18 06:24 10/05/18 06:24 10/05/18 06:24 10/05/18 06:24 10/05/18 06:24 Exam: Constitutional: No acute distress. Eyes : Sclera white, conjunctiva clear, ENT : Moist mucus membranes. No JVD, Respiratory : decreased breath sounds at bases, bilateral coarse crackles,- better Cardiovascular : irregular +S1, +S2. 2/6 systolic murmur. GI/Abdominal : Soft, nontender positive bowel sounds, no rebound Musculoskeletal: no deformity noted. trace edema warm extremities, radial pulses palpable and symmetrical Neurological: AO X3, CN II-XII grossly intact, grossly normal motor and sensory exam. - Patient Status Disposition: Home, Self-Care Condition: Fair Overall status at discharge: patient is progressing back to baseline - Discharge Instructions Follow Up With: Christine Rabago CNP [Primary Care Provider] - 10/12/18 1:00 pm Fracisco Petit MD [Partnered Physician] - (Office will call patient at home with follow up appointment) - Diet and Activity Activity: increase activity as tolerated Diet: advance to your usual diet, low fat, low cholesterol, low salt diet
[2018-10-05] MEDS ORDERED: Lisinopril 20 MG TABLET PO SCH (09:00)
[2018-10-05] MEDS: Diltiazem CD (24hr) 180 MG CAPSULE PO SCH (09:55)
[2018-10-05] MEDS: cefTRIAXone 1,000 MG in Water for inj. (sterile) 20 ML 10 ML IVP SCH (09:56)
[2018-10-05] MEDS: Metoprolol 100 MG TABLET PO SCH (09:56)
[2018-10-05] MEDS: Aspirin Enteric Coated 81 MG Tablet PO SCH (09:56)
--- NOTE | 2018-10-05 11:02 | Event Note ---
Date of Encounter: 10/05/18 Time of Encounter: 10:59 - Cardiology Event Note Patient is now rate controlled on cardizem CD 360mg and lopressor 100mg BID. On xarelto for anticoagulation. Free 30 day xarelto coupon card given to patient. Can consider transition to coumadin in outpateint setting if needed due to cost. Continue ASA. Discontinue plavix. Cardiology will sign off, will arrange outpatient follow up.
[2018-10-05 14:05] VITALS: BP 112/68
[2018-10-05] MEDS ORDERED: Azithromycin 250 MG TABLET PO SCH (18:00)
== END 2018-10-05 16:09 | disposition home or self-care (01) | DRG 871 ==
LOC: EMEROOARM 14:24 → 2NNU 19:46 → 3ANU 10-04 19:29
PROVIDERS: ADMIT Internal Medicine Nephrology; ATTEND Internal Medicine Nephrology

== ENCOUNTER 2022-02-08 19:35 | Inpatient (IN) ==
[2022-02-08] MEDS ORDERED: Iopamidol - 370 500 ML MLS IVP ONE (20:20)
[2022-02-08] MEDS ORDERED: Famotidine 20 MG/2 ML VIAL IVP ONE (20:44)
[2022-02-08 21:16] LABS: VBG HCO3 19 mEq/L (21-27); VBG PCO2 37 mmHg (41-51); VBG PH 7.32 pH Units (7.32-7.42); VBG PO2 43 mmHg (25-50)
[2022-02-08 21:18] LABS: Basophils % 0.4 %; Eosinophils # 0.4 K/mcL (0.0-0.6); Eosinophils % 3.4 %; Hematocrit 36.3 % (37.5-50.1); Hemoglobin 10.7 g/dL (12.9-16.9); Immature Granulocytes % 0.4 % (0-4); Lymphocytes # 2.6 K/mcL (0.6-4.6); Lymphocytes % 23.2 %; Mean Corpuscular HGB Conc 29.5 g/dL (31.6-35.5); Mean Corpuscular Hemoglobin 23.2 pg (28.0-33.3); Mean Corpuscular Volume 78.7 fL (83.0-100.0); Mean Platelet Volume 10.9 fL (9.4-12.4); Monocytes # 1.1 K/mcL (0.0-1.3); Neutrophils # 6.9 K/mcL (1.6-8.9); Platelet Count 234 K/mcL (140-400); Red Blood Count 4.61 M/mcL (4.19-5.50); Red Cell Distribution Width 18.8 % (11.5-14.5); Segmented Neutrophils % 62.6 %; White Blood Count 11.1 K/mcL (4.3-11.1)
[2022-02-08 21:25] LABS: INR 3.4
[2022-02-08] MEDS ORDERED: 0.9 % Sodium Chloride 1,000 ML IVC ONE (21:25)
[2022-02-08 21:42] LABS: Alanine Aminotransferase 11 Units/L (7-52); Albumin 3.5 g/dL (3.5-5.7); Albumin/Globulin Ratio 1.1 (1.1-2.2); Alkaline Phosphatase 71 Units/L (34-104); Aspartate Amino Transferase 17 Units/L (13-39); BUN/Creatinine Ratio 13 (6-26); Bilirubin,Direct 0.2 mg/dL (0.0-0.2); Bilirubin,Indirect 0.5 mg/dL (0.0-1.0); Bilirubin,Total 0.7 mg/dL (0.3-1.0); Blood Urea Nitrogen 39 mg/dL (8-23); Calcium 8.7 mg/dL (8.6-10.3); Carbon Dioxide 20 mEq/L (23-29); Chloride 105 mEq/L (98-107); Globulin 3.1 g/dL (2.4-3.5); Glucose 129 mg/dL (70-105); Lipase 70 Units/L (11-82); Osmolality,Calculated 289 (280-300); Potassium 4.3 mEq/L (3.5-5.1); Sodium 134 mEq/L (136-145); Total Protein 6.6 g/dL (6.4-8.9); Troponin I < 0.03 ng/mL (< 0.04)
[2022-02-08 22:14] LABS: % Iron Saturation 4 % (20-55); Iron 18 mcg/dL (65-175); Transferrin 329 mg/dL (203-362)
[2022-02-08 22:39] LABS: Basophils % 0.2 %; Eosinophils # 0.3 K/mcL (0.0-0.6); Eosinophils % 3.1 %; Hematocrit 30.2 % (37.5-50.1); Immature Granulocytes % 0.6 % (0-4); Lymphocytes # 2.6 K/mcL (0.6-4.6); Lymphocytes % 24.4 %; Mean Corpuscular HGB Conc 29.5 g/dL (31.6-35.5); Mean Corpuscular Hemoglobin 23.6 pg (28.0-33.3); Mean Corpuscular Volume 80.1 fL (83.0-100.0); Mean Platelet Volume 10.2 fL (9.4-12.4); Monocytes # 0.9 K/mcL (0.0-1.3); Monocytes % 8.5 %; Neutrophils # 6.8 K/mcL (1.6-8.9); Platelet Count 183 K/mcL (140-400); Red Blood Count 3.77 M/mcL (4.19-5.50); Red Cell Distribution Width 18.7 % (11.5-14.5); Segmented Neutrophils % 63.2 %; White Blood Count 10.7 K/mcL (4.3-11.1)
[2022-02-08 22:44] LABS: Hemoglobin 8.9 g/dL (12.9-16.9)
[2022-02-08] MEDS ORDERED: 0.9 % Sodium Chloride 500 ML ONE (22:51)
[2022-02-08] MEDS ORDERED: 0.9 % Sodium Chloride 500 ML IV ONE (23:05)
[2022-02-08] MEDS ORDERED: [UNRECOGNIZED DRUG - OTHER] IVPB ONE (23:30)
[2022-02-08] MEDS ORDERED: WATER FOR INJ IVPB ONE (23:30)
[2022-02-08] MEDS ORDERED: HUM PROTHROMBIN CPLX IVPB ONE (23:30)
[2022-02-09] MEDS ORDERED: Pantoprazole 40 MG VIAL IVP ONE (01:34)
[2022-02-09] MEDS ORDERED: Naloxone 0.4 MG/ML INJ IVP PRN (01:35)
[2022-02-09] MEDS ORDERED: Melatonin 3 MG TABLET PO PRN (01:35)
[2022-02-09] MEDS ORDERED: Ringers Solution, Lactated 1,000 ML IVC SCH (02:30)
[2022-02-09] MEDS: Ondansetron 4 MG/2 ML VIAL IVP PRN ×2 (03:03→11:53)
[2022-02-09 03:18] LABS: Hematocrit 33.4 % (37.5-50.1); Hemoglobin 9.9 g/dL (12.9-16.9); Mean Corpuscular HGB Conc 29.6 g/dL (31.6-35.5); Mean Corpuscular Volume 81.1 fL (83.0-100.0); Mean Platelet Volume 11.4 fL (9.4-12.4); Platelet Count 199 K/mcL (140-400); Red Blood Count 4.12 M/mcL (4.19-5.50); Red Cell Distribution Width 18.6 % (11.5-14.5); White Blood Count 13.8 K/mcL (4.3-11.1)
[2022-02-09] MEDS ORDERED: cefTRIAXone 1,000 MG in 0.9 % Sodium Chloride 10 ML IVP SCH (03:28)
[2022-02-09 03:31] LABS: INR 2.6; Prothrombin Time 28.5 Seconds (9.4-12.1)
[2022-02-09 03:40] LABS: Albumin/Globulin Ratio 1.2 (1.1-2.2); Bilirubin,Total 1.6 mg/dL (0.3-1.0); Calcium 7.8 mg/dL (8.6-10.3); Globulin 2.6 g/dL (2.4-3.5); Magnesium 1.3 mg/dL (1.6-2.6); Potassium 4.5 mEq/L (3.5-5.1); Total Protein 5.6 g/dL (6.4-8.9)
[2022-02-09] MEDS ORDERED: Lidocaine -MPF 1% 5 ML AMPUL INFILT ONE (08:16)
[2022-02-09 09:06] LABS: Hematocrit 27.7 % (37.5-50.1); Hemoglobin 8.8 g/dL (12.9-16.9)
[2022-02-09] MEDS ORDERED: 0.9 % Sodium Chloride 250 ML ONE (09:06)
[2022-02-09] MEDS: Octreotide 400 MCG in 0.9 % Sodium Chloride 100 ML IVC SCH (09:15)
[2022-02-09] MEDS ORDERED: Morphine Sulfate 2 MG/ML SYRINGE IVP STA (10:52)
[2022-02-09] MEDS ORDERED: Iopamidol - 370 500 ML MLS IVP ONE (11:06)
[2022-02-09] MEDS ORDERED: Ringers Solution, Lactated 1,000 ML IVC ONE (11:33)
[2022-02-09] MEDS ORDERED: Calcium Gluconate 1gm/50mL 1 GM/50 ML BAG IVPB PRN (11:47)
[2022-02-09] MEDS ORDERED: Ringers Solution, Lactated 1,000 ML ONE (11:54)
[2022-02-09] MEDS: Pantoprazole 40 MG VIAL IVP SCH (13:10)
[2022-02-09 13:39] LABS: Hematocrit 24.3 % (37.5-50.1); Hemoglobin 7.4 g/dL (12.9-16.9)
[2022-02-09] MEDS ORDERED: Heparin 1,000 UNITS/500 mL 500 ML ONE ×2 (13:57→15:01)
[2022-02-09] MEDS ORDERED: 0.9 % Sodium Chloride 500 ML ONE (13:57)
[2022-02-09] MEDS ORDERED: 0.9 % Sodium Chloride 1,000 ML ONE (13:59)
[2022-02-09] MEDS ORDERED: Iopamidol - 300 50 ML VIAL IVP ONE ×4 (14:55→15:00)
[2022-02-09] MEDS ORDERED: SODIUM CHLORIDE/NAHCO3/KCL/PEG 4,000 ML SOLN.RECON PO ONE (17:00)
[2022-02-09] MEDS: Norepinephrine 4 MG/254 ML IV.SOLN IVC SCH (17:14)
[2022-02-09 17:28] LABS: INR 2.4; Prothrombin Time 26.7 Seconds (9.4-12.1)
[2022-02-09 17:31] LABS: Activated Partial Thrombo Time 33.3 Seconds (26.0-36.0)
[2022-02-09 18:11] LABS: Hematocrit 25.7 % (37.5-50.1)
[2022-02-09 19:06] LABS: Basophils % 0.2 %; Hematocrit 25.4 % (37.5-50.1); Immature Granulocytes % 0.9 % (0-4); Lymphocytes # 2.3 K/mcL (0.6-4.6); Lymphocytes % 14.3 %; Mean Corpuscular HGB Conc 31.5 g/dL (31.6-35.5); Mean Corpuscular Hemoglobin 26.4 pg (28.0-33.3); Mean Corpuscular Volume 83.8 fL (83.0-100.0); Mean Platelet Volume 11.6 fL (9.4-12.4); Monocytes # 1.1 K/mcL (0.0-1.3); Neutrophils # 12.6 K/mcL (1.6-8.9); Nucleated Red Blood Cells 0.2 /100 WBC (0); Platelet Count 156 K/mcL (140-400); Red Blood Count 3.03 M/mcL (4.19-5.50); Red Cell Distribution Width 17.7 % (11.5-14.5); Segmented Neutrophils % 77.6 %; White Blood Count 16.2 K/mcL (4.3-11.1)
[2022-02-10 00:26] LABS: Hematocrit 22.7 % (37.5-50.1); Hemoglobin 7.1 g/dL (12.9-16.9)
[2022-02-10] MEDS: Pantoprazole 40 MG VIAL IVP SCH ×3 (00:44→22:57)
[2022-02-10] MEDS: Norepinephrine 4 MG/254 ML IV.SOLN IVC SCH ×2 (04:00→19:21)
[2022-02-10 04:36] LABS: Basophils % 0.2 %; Hematocrit 24.8 % (37.5-50.1); Hemoglobin 7.8 g/dL (12.9-16.9); Immature Granulocytes % 1.1 % (0-4); Lymphocytes # 2.1 K/mcL (0.6-4.6); Lymphocytes % 11.6 %; Mean Corpuscular HGB Conc 31.5 g/dL (31.6-35.5); Mean Corpuscular Hemoglobin 26.6 pg (28.0-33.3); Mean Corpuscular Volume 84.6 fL (83.0-100.0); Mean Platelet Volume 11.4 fL (9.4-12.4); Monocytes # 1.4 K/mcL (0.0-1.3); Monocytes % 7.8 %; Neutrophils # 14.6 K/mcL (1.6-8.9); Nucleated Red Blood Cells 0.2 /100 WBC (0); Platelet Count 158 K/mcL (140-400); Red Blood Count 2.93 M/mcL (4.19-5.50); Red Cell Distribution Width 17.2 % (11.5-14.5); Segmented Neutrophils % 79.3 %; White Blood Count 18.4 K/mcL (4.3-11.1)
[2022-02-10 04:44] LABS: Prothrombin Time 22.7 Seconds (9.4-12.1)
[2022-02-10 04:55] LABS: Albumin 2.9 g/dL (3.5-5.7); Albumin/Globulin Ratio 1.3 (1.1-2.2); Bilirubin,Total 0.9 mg/dL (0.3-1.0); Calcium 7.9 mg/dL (8.6-10.3); Globulin 2.2 g/dL (2.4-3.5); Magnesium 1.7 mg/dL (1.6-2.6); Phosphorous 3.2 mg/dL (2.7-4.5); Potassium 5.4 mEq/L (3.5-5.1); Total Protein 5.1 g/dL (6.4-8.9)
[2022-02-10] MEDS: MetroNIDAZOLE 500 MG/100 ML 500 MG/100 ML BAG IVPB SCH ×3 (08:30→22:58)
[2022-02-10] MEDS ORDERED: Iopamidol - 370 500 ML MLS IVP ONE (09:51)
[2022-02-10] MEDS: 0.9 % Sodium Chloride 1,000 ML IVC SCH ×2 (12:07→19:24)
[2022-02-10 12:27] LABS: Hematocrit 28.8 % (37.5-50.1)
[2022-02-10 12:29] LABS: Hemoglobin 9.4 g/dL (12.9-16.9)
[2022-02-10] MEDS ORDERED: *HR* FentaNYL (PF) 100 MCG/2 ML VIAL IVP ONE (15:08)
[2022-02-10] MEDS ORDERED: *HR* Midazolam HCl 5 MG/5 ML VIAL IVP ONE (15:11)
[2022-02-10] MEDS: Octreotide 400 MCG in 0.9 % Sodium Chloride 100 ML IVC SCH (19:33)
[2022-02-10 21:59] LABS: Hemoglobin 7.5 g/dL (12.9-16.9)
[2022-02-10 23:28] LABS: Hematocrit 23.3 % (37.5-50.1); Hemoglobin 7.6 g/dL (12.9-16.9)
[2022-02-11 01:19] LABS: INR 1.3; Prothrombin Time 14.9 Seconds (9.4-12.1)
[2022-02-11 01:22] LABS: Activated Partial Thrombo Time 23.9 Seconds (26.0-36.0)
[2022-02-11] MEDS: 0.9 % Sodium Chloride 1,000 ML IVC SCH ×2 (01:27→08:23)
[2022-02-11] MEDS ORDERED: 0.9 % Sodium Chloride 250 ML ONE (03:44)
[2022-02-11 04:00] LABS: Basophils % 0.1 %; Eosinophils # 0.1 K/mcL (0.0-0.6); Eosinophils % 1.2 %; Hematocrit 22.3 % (37.5-50.1); Hemoglobin 7.2 g/dL (12.9-16.9); Immature Granulocytes % 0.7 % (0-4); Lymphocytes # 0.6 K/mcL (0.6-4.6); Lymphocytes % 4.8 %; Mean Corpuscular HGB Conc 32.3 g/dL (31.6-35.5); Mean Corpuscular Hemoglobin 27.8 pg (28.0-33.3); Mean Corpuscular Volume 86.1 fL (83.0-100.0); Mean Platelet Volume 10.7 fL (9.4-12.4); Monocytes # 0.7 K/mcL (0.0-1.3); Neutrophils # 10.1 K/mcL (1.6-8.9); Nucleated Red Blood Cells 0.6 /100 WBC (0); Platelet Count 140 K/mcL (140-400); Red Blood Count 2.59 M/mcL (4.19-5.50); Segmented Neutrophils % 87.2 %; White Blood Count 11.6 K/mcL (4.3-11.1)
[2022-02-11 04:09] LABS: VBG Ionized Calcium 1.25 mmol/L (1.15-1.35)
[2022-02-11 04:20] LABS: Albumin 2.8 g/dL (3.5-5.7); Albumin/Globulin Ratio 1.3 (1.1-2.2); Bilirubin,Total 0.9 mg/dL (0.3-1.0); Calcium 8.1 mg/dL (8.6-10.3); Globulin 2.1 g/dL (2.4-3.5); Magnesium 1.4 mg/dL (1.6-2.6); Phosphorous 1.5 mg/dL (2.7-4.5); Potassium 4.2 mEq/L (3.5-5.1); Total Protein 4.9 g/dL (6.4-8.9)
[2022-02-11] MEDS: Norepinephrine 4 MG/254 ML IV.SOLN IVC SCH ×2 (05:09→20:21)
[2022-02-11] MEDS: MetroNIDAZOLE 500 MG/100 ML 500 MG/100 ML BAG IVPB SCH ×2 (09:22→16:50)
[2022-02-11] MEDS: Pantoprazole 40 MG VIAL IVP SCH (12:14)
[2022-02-11 14:07] LABS: Hematocrit 24.5 % (37.5-50.1); Hemoglobin 7.6 g/dL (12.9-16.9)
[2022-02-11 18:41] LABS: Hematocrit 24.2 % (37.5-50.1); Hemoglobin 7.6 g/dL (12.9-16.9)
[2022-02-12] MEDS: MetroNIDAZOLE 500 MG/100 ML 500 MG/100 ML BAG IVPB SCH ×4 (00:01→23:18)
[2022-02-12] MEDS: Pantoprazole 40 MG VIAL IVP SCH ×3 (00:01→23:18)
[2022-02-12 00:37] LABS: Hematocrit 23.9 % (37.5-50.1); Hemoglobin 7.7 g/dL (12.9-16.9)
[2022-02-12 03:48] LABS: VBG Ionized Calcium 1.17 mmol/L (1.15-1.35)
[2022-02-12 03:57] LABS: Basophils % 0.1 %; Eosinophils # 0.5 K/mcL (0.0-0.6); Eosinophils % 5.2 %; Hematocrit 24.4 % (37.5-50.1); Hemoglobin 7.7 g/dL (12.9-16.9); Immature Granulocytes % 0.7 % (0-4); Lymphocytes # 0.8 K/mcL (0.6-4.6); Lymphocytes % 9.1 %; Mean Corpuscular HGB Conc 31.6 g/dL (31.6-35.5); Mean Corpuscular Hemoglobin 27.9 pg (28.0-33.3); Mean Corpuscular Volume 88.4 fL (83.0-100.0); Mean Platelet Volume 10.7 fL (9.4-12.4); Monocytes # 0.7 K/mcL (0.0-1.3); Monocytes % 8.4 %; Neutrophils # 6.6 K/mcL (1.6-8.9); Nucleated Red Blood Cells 0.8 /100 WBC (0); Platelet Count 116 K/mcL (140-400); Red Blood Count 2.76 M/mcL (4.19-5.50); Segmented Neutrophils % 76.5 %; White Blood Count 8.7 K/mcL (4.3-11.1)
[2022-02-12 04:08] LABS: INR 1.3; Prothrombin Time 14.5 Seconds (9.4-12.1)
[2022-02-12 04:11] LABS: Activated Partial Thrombo Time 24.5 Seconds (26.0-36.0)
[2022-02-12 04:16] LABS: Albumin 2.7 g/dL (3.5-5.7); Albumin/Globulin Ratio 1.4 (1.1-2.2); Bilirubin,Total 0.6 mg/dL (0.3-1.0); Calcium 7.9 mg/dL (8.6-10.3); Globulin 1.9 g/dL (2.4-3.5); Magnesium 1.3 mg/dL (1.6-2.6); Phosphorous 2.1 mg/dL (2.7-4.5); Potassium 3.7 mEq/L (3.5-5.1); Total Protein 4.6 g/dL (6.4-8.9)
[2022-02-12] MEDS ORDERED: Potassium Phosphate 44 MEQ in 0.9 % Sodium Chloride 250 ML IVPB ONE (04:31)
[2022-02-12] MEDS: 0.9 % Sodium Chloride 1,000 ML IVC SCH (08:14)
[2022-02-12 08:38] LABS: Hematocrit 26.4 % (37.5-50.1); Hemoglobin 8.2 g/dL (12.9-16.9)
[2022-02-12 12:48] LABS: Hematocrit 27.1 % (37.5-50.1); Hemoglobin 8.5 g/dL (12.9-16.9)
[2022-02-13 03:28] LABS: Basophils % 0.1 %; Eosinophils # 0.4 K/mcL (0.0-0.6); Hematocrit 24.8 % (37.5-50.1); Hemoglobin 7.9 g/dL (12.9-16.9); Immature Granulocytes % 0.7 % (0-4); Lymphocytes # 0.7 K/mcL (0.6-4.6); Lymphocytes % 8.9 %; Mean Corpuscular HGB Conc 31.9 g/dL (31.6-35.5); Mean Corpuscular Hemoglobin 28.2 pg (28.0-33.3); Mean Corpuscular Volume 88.6 fL (83.0-100.0); Mean Platelet Volume 11.6 fL (9.4-12.4); Monocytes # 0.7 K/mcL (0.0-1.3); Monocytes % 9.9 %; Neutrophils # 5.6 K/mcL (1.6-8.9); Nucleated Red Blood Cells 0.8 /100 WBC (0); Platelet Count 124 K/mcL (140-400); Red Cell Distribution Width 17.3 % (11.5-14.5); Segmented Neutrophils % 75.4 %; White Blood Count 7.4 K/mcL (4.3-11.1)
[2022-02-13 03:41] LABS: VBG Ionized Calcium 1.15 mmol/L (1.15-1.35)
[2022-02-13 03:48] LABS: Albumin 2.7 g/dL (3.5-5.7); Albumin/Globulin Ratio 1.2 (1.1-2.2); Bilirubin,Total 0.6 mg/dL (0.3-1.0); Globulin 2.2 g/dL (2.4-3.5); Magnesium 1.4 mg/dL (1.6-2.6); Phosphorous 2.6 mg/dL (2.7-4.5); Potassium 3.8 mEq/L (3.5-5.1); Total Protein 4.9 g/dL (6.4-8.9)
[2022-02-13 04:22] LABS: INR 1.3; Prothrombin Time 14.7 Seconds (9.4-12.1)
[2022-02-13] MEDS ORDERED: Magnesium Sulfate 1 GM/102 ML PIGGYBACK IVPB ONE (07:27)
[2022-02-13] MEDS: MetroNIDAZOLE 500 MG/100 ML 500 MG/100 ML BAG IVPB SCH (08:43)
[2022-02-13] MEDS: metroNIDAZOLE 500 MG TABLET PO SCH ×2 (17:13→20:40)
[2022-02-14 05:22] VITALS: BP 118/97; TEMP 98.3
[2022-02-14 05:49] LABS: Albumin 2.8 g/dL (3.5-5.7); Albumin/Globulin Ratio 1.2 (1.1-2.2); Bilirubin,Total 0.8 mg/dL (0.3-1.0); Calcium 8.1 mg/dL (8.6-10.3); Globulin 2.4 g/dL (2.4-3.5); Magnesium 1.6 mg/dL (1.6-2.6); Phosphorous 2.5 mg/dL (2.7-4.5); Potassium 3.8 mEq/L (3.5-5.1); Total Protein 5.2 g/dL (6.4-8.9)
[2022-02-14 06:38] LABS: Basophils % 0.4 %; Eosinophils # 0.5 K/mcL (0.0-0.6); Eosinophils % 6.1 %; Hematocrit 26.2 % (37.5-50.1); Hemoglobin 8.3 g/dL (12.9-16.9); Immature Granulocytes % 0.7 % (0-4); Lymphocytes # 1.1 K/mcL (0.6-4.6); Lymphocytes % 14.5 %; Mean Corpuscular HGB Conc 31.7 g/dL (31.6-35.5); Mean Corpuscular Hemoglobin 28.5 pg (28.0-33.3); Mean Platelet Volume 11.2 fL (9.4-12.4); Neutrophils # 4.9 K/mcL (1.6-8.9); Nucleated Red Blood Cells 0.8 /100 WBC (0); Platelet Count 154 K/mcL (140-400); Red Blood Count 2.91 M/mcL (4.19-5.50); Red Cell Distribution Width 17.8 % (11.5-14.5); Segmented Neutrophils % 65.3 %; White Blood Count 7.5 K/mcL (4.3-11.1)
[2022-02-14 08:00] VITALS: PULSE 97; O2SAT 100
[2022-02-14] MEDS ORDERED: Furosemide 20 MG TABLET PO SCH (09:00)
[2022-02-14] MEDS ORDERED: allopurinoL 100 MG TABLET PO SCH (09:00)
[2022-02-14] MEDS ORDERED: Aspirin Enteric Coated 81 MG Tablet PO SCH (09:00)
[2022-02-14] MEDS ORDERED: DilTIAZem CD (24hr) 180 MG CAP.ER.24H PO SCH (09:00)
[2022-02-14] MEDS: metroNIDAZOLE 500 MG TABLET PO SCH (09:20)
== END 2022-02-14 12:31 | disposition home or self-care (01) | DRG 907 ==
LOC: 2NNU 19:35 → EMEROOARM 19:35 → SUATTDRO 02-09 01:38 → 2NNU 02-09 02:16 → ICNU 02-09 04:35 → 3NENU 02-12 13:39
PROVIDERS: ADMIT Student in an Organized Health Care Education/Training Program; ATTEND Internal Medicine